=== PATIENT | male | born 1935 | race Caucasian/White ===

== ENCOUNTER 2020-07-08 14:28 | Inpatient (IN) | payer OTHER ==
--- NOTE | 2020-07-08 15:07 | RAD REPORT ---
EXAM DESCRIPTION: Luzmaria Single View07/08/2020 3:02 pm CLINICAL HISTORY: cough COMPARISON: 2013 FINDINGS: Calcified granuloma right lung. The lungs appear clear of acute infiltrate. The heart is normal size IMPRESSION: No acute abnormalities displayed
[2020-07-08] MEDS ORDERED: NA CHLORIDE 0.9% 250 ML ONE (15:17)
[2020-07-08 15:28] LABS: Absolute Lymphocytes (CBC) 2.1 K/uL (0.7-4.9); Basophils % 0.6 % (0-1.3); Hematocrit 45.2 % (39.6-49.0); Lymphocytes % 35.3 % (15.3-44.8); RBC Red Blood Cell Count 5.02 M/uL (4.33-5.43)
[2020-07-08 15:46] LABS: C-Reactive Protein 7.13 mg/L (<3.00); Potassium 4.1 mmol/L (3.5-5.1); Troponin (Emerg Dept Use Only) 0.02 ng/mL (0.0-0.045)
--- NOTE | 2020-07-08 15:56 | ER ---
Nurse's Notes [facility] Name: Xavier Comer Age: 84 yrs Sex: Male : 1935 Arrival Date: 07/08/2020 Time: 14:30 Bed 4 Private MD: Diagnosis: Dyspnea, unspecified;Chronic kidney disease (CKD) Presentation: 07/08 14:41 Chief complaint: Patient states: Cough for 3 weeks. SOB increasing over the past 3 ll1 days. SOB with any exertion. No fever at home. Coronavirus screen: Client denies travel out of the [place] in the last 14 days. cough unrelated to allergies, difficulty breathing, fatigue, Client presents with at least one sign or symptom that may indicate coronavirus-19. Standard/surgical mask placed on the client. Ebola Screen: Patient denies travel to an Ebola-affected area in the 21 days before illness onset. Initial Sepsis Screen: Does the patient meet any 2 criteria? HR > 90 bpm. Risk Assessment: Do you want to hurt yourself or someone else? Patient reports no desire to harm self or others. Onset of symptoms was June 16, 2020. 14:41 Method Of Arrival: Wheelchair ll1 14:41 Acuity: LINDSEY 3 ll1 15:05 Initial Sepsis Screen: Does the patient have a suspected source of infection? No. sv Patient's initial sepsis screen is negative. Historical: - Allergies: 14:43 No Known Allergies; ll1 - PMHx: 14:43 Hypertension; walking pneumonia; pleurisy; ll1 - PSHx: 14:43 Hernia repair; Cholecystectomy; Prostate; Appendectomy; ll1 - Immunization history:: Flu vaccine is up to date. - Social history:: Smoking status: Patient denies any tobacco usage or history of. Patient/guardian denies using alcohol, street drugs. - Family history:: not pertinent. - Hospitalizations: : No recent hospitalization is reported. Screenin:40 Abuse screen: Denies threats or abuse. Denies injuries from another. Nutritional sv screening: No deficits noted. Tuberculosis screening: No symptoms or risk factors identified. Fall Risk None identified. Assessment: 15:05 General: Appears in no apparent distress. comfortable, slender, well groomed, well sv developed, well nourished, Behavior is calm, cooperative, appropriate for age. Pain: Denies pain. Neuro: Level of Consciousness is awake, alert, obeys commands, Oriented to person, place, time, situation, Moves all extremities. Full function Gait is steady, Speech is normal. Cardiovascular: Patient's skin is warm and dry. Rhythm is sinus rhythm with unifocal PVCs. Respiratory: Reports shortness of breath on exertion cough that is non-productive, persistent since 3 weeks Airway is patent Respiratory effort is even, unlabored, Respiratory pattern is regular, symmetrical. Derm: Skin is intact, Skin is pink, warm \T\ dry. Musculoskeletal: Range of motion: intact in all extremities. 15:54 Reassessment: Patient appears in no apparent distress at this time. No changes from sv previously documented assessment. Patient and/or family updated on plan of care and expected duration. Pain level reassessed. Patient is alert, oriented x 3, equal unlabored respirations, skin warm/dry/pink. 16:28 Reassessment: Awaiting admission orders. sv 16:35 Reassessment: Dr Knott at the bedside. sv 17:00 Reassessment: Patient appears in no apparent distress at this time. No changes from sv previously documented assessment. Patient and/or family updated on plan of care and expected duration. Pain level reassessed. Patient is alert, oriented x 3, equal unlabored respirations, skin warm/dry/pink. 17:08 Reassessment: Ultrasound at the bedside. sv 17:25 Reassessment: Attempted to call report, nurse to call back. sv Vital Signs: 14:41 BP 176 / 108; Pulse 112; Resp 20; Temp 97.6; Pulse Ox 93% on R/A; Pain 4/10; ll1 15:42 Pulse Ox 87% on R/A; sv 15:50 BP 177 / 87; Pulse 92; Resp 16; Pulse Ox 95% on 3.5 lpm NC; sv 16:27 Weight 83.91 kg (R); sv 17:02 BP 168 / 91; Pulse 90 MON; Resp 12; Pulse Ox 98% on 3.5 lpm NC; sv 17:02 Sinus Rhythm sv 15:42 Pt placed on O2 \T\ 3.5 L per NC. O2 sat up to 95%. Informed Dr Knott. sv ED Course: 14:30 Patient arrived in ED. ds1 14:39 Lauro Knott MD is Attending Physician. rn 14:40 Naila Moulton, RN is Primary Nurse. sv 14:40 Awaiting ED provider evaluation. sv 14:40 Arm band placed on. sv 14:40 Patient has correct armband on for positive identification. Bed in low position. Call sv light in reach. Pulse ox on. NIBP on. Door closed. Head of bed elevated. 14:42 Awaiting for x-ray. sv 14:43 Triage completed. ll1 14:57 X-ray(s) taken. sv 15:02 XRAY Chest (1 view) In Process Unspecified. EDMS 15:05 First set of blood cultures drawn by me, EKG done, by ED staff, reviewed by Lauro valdivia MD. 15:12 Second set of blood cultures drawn by me. Inserted saline lock: 20 gauge in left sv antecubital area, using aseptic technique. Blood collected. Flushed left antecubital with 5 ml normal saline. 15:55 Tony Knott MD is Hospitalizing Provider. rn 16:51 Awaiting bed assignment. sv 17:33 Extrem Venous W Compression Glen US In Process Unspecified. EDMS 18:08 No provider procedures requiring assistance completed. Patient admitted, IV remains in hb place. Administered Medications: 15:14 Drug: NS 0.9% 250 ml Route: IV; Rate: bolus; Site: left antecubital; hb 15:35 Follow up: Response: No adverse reaction; IV Status: Completed infusion; IV Intake: sv 250ml 17:54 Drug: Lovenox 1 mg/kg Route: Sub-Q; Site: right lower abdomen; ss 18:08 Follow up: Response: No adverse reaction sv Intake: 15:35 IV: 250ml; Total: 250ml. sv Outcome: 15:55 Decision to Hospitalize by Provider. rn 18:08 Admitted to Tele room 207, Report called to Na JACOBS hb 18:08 Condition: stable 18:08 Instructed on the need for admit, Demonstrated understanding of instructions. 18:35 Patient left the ED. hb Signatures: Dispatcher [employer] EDMS Naila Moulton, RN ARLENE Sharri Lacey ds1 Lauro Knott MD MD rn Smirch, Shelby, RN RN Daxa Falcon RN RN hb Lewis, Lynsay RN RN ll1
--- NOTE | 2020-07-08 15:56 | EDPHYS ---
Physician Documentation [facility] Name: Xavier Comer Age: 84 yrs Sex: Male : 1935 Arrival Date: 07/08/2020 Time: 14:30 Bed 4 Private MD: ED Physician Lauro Knott HPI: 07/08 14:53 This 84 yrs old Male presents to ER via Wheelchair with complaints of rn Shortness Of Breath. 14:53 The patient has shortness of breath at rest, with light activity. Onset: The rn symptoms/episode began/occurred 3 week(s) ago. Duration: The symptoms are intermittent. The patient's shortness of breath is aggravated by exertion, light activity, is alleviated by nothing. Severity of symptoms: At their worst the symptoms were moderate in the emergency department the symptoms have improved. The patient has experienced a previous episode. Reports symptoms similar to when had "walking pneumonia" in past, + cough/sob, worse with exertion, began 3 weeks ago, worse over last few days. No known sick contacts. . Historical: - Allergies: 14:43 No Known Allergies; ll1 - PMHx: 14:43 Hypertension; walking pneumonia; pleurisy; ll1 - PSHx: 14:43 Hernia repair; Cholecystectomy; Prostate; Appendectomy; ll1 - Immunization history:: Flu vaccine is up to date. - Social history:: Smoking status: Patient denies any tobacco usage or history of. Patient/guardian denies using alcohol, street drugs. - Family history:: not pertinent. - Hospitalizations: : No recent hospitalization is reported. ROS: 14:53 Constitutional: Negative for fever, chills, and weight loss, Eyes: Negative for injury, rn pain, redness, and discharge, ENT: Negative for injury, pain, and discharge, Cardiovascular: Negative for palpitations, and edema, Respiratory: Negative for wheezing, and pleuritic chest pain, Abdomen/GI: Negative for abdominal pain, nausea, vomiting, diarrhea, and constipation, MS/Extremity: Negative for injury and deformity, Skin: Negative for injury, rash, and discoloration, Neuro: Negative for headache, weakness, numbness, tingling, and seizure. Exam: 14:53 Constitutional: This is a well developed, well nourished patient who is awake, alert, rn and in no acute distress. Head/Face: Normocephalic, atraumatic. ENT: No stridor Cardiovascular: Tachycardic, regular Respiratory: + mild tachypnea, no wheezing Abdomen/GI: soft, non-tender MS/ Extremity: Pulses equal, no cyanosis. Neurovascular intact. Full, normal range of motion. Equal circumference. Neuro: Awake and alert, GCS 15, oriented to person, place, time, and situation. Cranial nerves II-XII grossly intact. Motor strength 5/5 in all extremities. Sensory grossly intact. 15:25 ECG was reviewed by the Attending Physician. rn Vital Signs: 14:41 BP 176 / 108; Pulse 112; Resp 20; Temp 97.6; Pulse Ox 93% on R/A; Pain 4/10; ll1 15:42 Pulse Ox 87% on R/A; sv 15:50 BP 177 / 87; Pulse 92; Resp 16; Pulse Ox 95% on 3.5 lpm NC; sv 16:27 Weight 83.91 kg (R); sv 17:02 BP 168 / 91; Pulse 90 MON; Resp 12; Pulse Ox 98% on 3.5 lpm NC; sv 17:02 Sinus Rhythm sv 15:42 Pt placed on O2 \\T\\ 3.5 L per NC. O2 sat up to 95%. Informed Dr Knott. sv MDM: 14:39 Patient medically screened. rn 15:52 Differential diagnosis: Bronchitis pneumonia, Pulmonary Embolism. Data reviewed: vital rn signs, nurses notes, lab test result(s), radiologic studies, plain films, and as a result, I will admit patient. Counseling: I had a detailed discussion with the patient and/or guardian regarding: the historical points, exam findings, and any diagnostic results supporting the discharge/admit diagnosis, lab results, radiology results, the need for further work-up and treatment in the hospital. Response to treatment: There is no appreciated change of the patient's symptoms at this time, and as a result, I will admit patient. Admission orders: after a detailed discussion of the patient's condition and case, the admit orders are written by me. ED course: Elevated d-dimer, hypoxic, tachycardic, + hx of PE, unable to perform CT PE here 2/2 elevated kidney function, admitted to [facility] Knott for further care and V/Q scan. . 07/08 14:53 Order name: Blood Culture Adult (2) rn 07/08 14:53 Order name: BMP; Complete Time: 15:48 rn 07/08 14:53 Order name: C-Reactive Protein; Complete Time: 15:48 rn 07/08 14:53 Order name: CBC with Diff; Complete Time: 15:48 rn 07/08 14:53 Order name: D-Dimer; Complete Time: 15:48 rn 07/08 14:40 Order name: XRAY Chest (1 view); Complete Time: 15:15 rn 07/08 14:53 Order name: Ferritin; Complete Time: 15:48 rn 07/08 14:53 Order name: Flu; Complete Time: 18:19 rn 07/08 14:53 Order name: Lactate; Complete Time: 15:48 rn 07/08 14:53 Order name: Procalcitonin; Complete Time: 16:06 rn 07/08 14:53 Order name: Troponin (emerg Dept Use Only); Complete Time: 15:48 rn 07/08 14:53 Order name: BNP; Complete Time: 15:48 rn 07/08 16:18 Order name: SARS-COV-2 RT PCR; Complete Time: 18:19 EDMS 07/08 14:53 Order name: EKG; Complete Time: 14:54 rn 07/08 14:53 Order name: Cardiac monitoring; Complete Time: 15:22 rn 07/08 14:53 Order name: Droplet/Contact Precautions; Complete Time: 15:22 rn 07/08 14:53 Order name: EKG - Nurse/Tech; Complete Time: 15:22 rn 07/08 14:53 Order name: IV Start; Complete Time: 15:22 rn 07/08 14:53 Order name: Labs collected and sent; Complete Time: 15:22 rn 07/08 14:53 Order name: O2 Per Protocol; Complete Time: 15:22 rn 07/08 14:53 Order name: O2 Sat Monitoring; Complete Time: 15: rn 07/08 15:56 Order name: Extrem Venous W Compression Glen US; Complete Time: 18:19 rn EC:25 Rate is 102 beats/min. Rhythm is regular. QRS [place] is Normal. LA interval is normal. QT rn interval is normal. No Q waves. T waves are Normal. No ST changes noted. Clinical impression: Sinus tachycardia. Interpreted by me. Reviewed by me. Administered Medications: 15:14 Drug: NS 0.9% 250 ml Route: IV; Rate: bolus; Site: left antecubital; hb 15:35 Follow up: Response: No adverse reaction; IV Status: Completed infusion; IV Intake: sv 250ml 17:54 Drug: Lovenox 1 mg/kg Route: Sub-Q; Site: right lower abdomen; ss 18:08 Follow up: Response: No adverse reaction sv Disposition: 07/08/20 15:55 Hospitalization ordered by Tony Knott for Observation. Preliminary diagnosis are Dyspnea, unspecified, Chronic kidney disease (CKD). - Bed requested for Telemetry/MedSurg (observation). - Status is Observation. hb - Condition is Stable. - Problem is new. - Symptoms have improved. Signatures: Dispatcher [employer] EDNaila Cruz, RN ARLENE Lauro Knott MD MD rn Smirch, Shelby, RN RN ss Baxter, Heather, RN RN hb Lewis, Lynsay RN RN ll1 Corrections: (The following items were deleted from the chart) 16:18 14:54 CORONAVIRUS+MR.LAB.BRZ ordered. EDVA EDVA 17:29 15:55 Hospitalization Ordered by Tony Knott MD for Observation. Preliminary sv diagnosis is Dyspnea, unspecified; Chronic kidney disease (CKD). Bed requested for Telemetry/MedSurg (observation). Status is Observation. Condition is Stable. Problem is new. Symptoms have improved. rn 18:35 17:29 07/08/2020 15:55 Hospitalization Ordered by Tony Knott MD for Observation. hb Preliminary diagnosis is Dyspnea, unspecified; Chronic kidney disease (CKD). Bed requested for Telemetry/MedSurg (observation). Status is Observation. Condition is Stable. Problem is new. Symptoms have improved. sv
--- NOTE | 2020-07-08 17:15 | P.HP ---
Certification for Inpatient Patient admitted to: Inpatient With expected LOS: >2 Midnights Practitioner: I am a practitioner with admitting privileges, knowledge of patient current condition, hospital course, and medical plan of care. Services: Services provided to patient in accordance with Admission requirements found in Title 42 Section 412.3 of the Code of Federal Regulations Patient History Date of Service: 07/08/20 Primary Care Provider: Dr. Aaron Reason for admission: Dyspnea on exertion, CHF exacerbation, possible PE History of Present Illness: 84-year-old male, PMH: HTN, prior PE and DVT several years ago (has been off anticoagulation for at least 2 years), GERD, CKD who presents due to 1 month of slowly progressively worsening dyspnea on exertion. This significantly worsened over the past week to where he would become significantly dyspneic just walking several feet and having to rest. He feels like there is a band around his chest at times and he takes a deep breath he will begin to have coughing fits that are nonproductive. He does endorse maybe some slight worsening of his lower extremity edema. He otherwise reports being in his usual state of health. Denies fever, chest pain, abdominal pain, chills, rashes, lesions, changes in urinary/bowel habits. In the ED, he was found have a D-dimer of 7207, creatinine of 1.94, CRP: 7.13, BNP: 9 1, pro calcitonin negative. Covid negative. CXR: No acute abnormalities, no DVT on bilateral venous ultrasound Given his kidney function, he did not undergo CT with IV contrast. Allergies No Known Drug Allergies Allergy (Verified 03/21/15 20:49) Unknown Home Medications: Omeprazole 20 mg PO DAILY 12/10/12 hydroCHLOROthiazide [Hydrodiuril*] 25 mg PO DAILY 12/10/12 Warfarin Sodium [Coumadin] 5 mg PO DAILY #0 tablet 12/15/12 Losartan/Hydrochlorothiazide [Losartan-Hctz 50-12.5 mg Tab] 1 tab PO DAILY 03/21/15 Potassium Chloride [Micro-K] 8 meq PO BID 03/21/15 Pravastatin [Pravachol*] 40 mg PO DAILY 03/21/15 Ciprofloxacin HCl [Cipro] 500 mg PO BID #14 tablet 03/24/15 metroNIDAZOLE [Flagyl] 250 mg PO Q6H #28 tablet 03/24/15 - Past Medical/Surgical History Diabetic: No -: diverticulosis -: afib -: kidney problems -: HTN -: carmita -: abd hernia repair -: prostate removed 15yrs ago - Family History Mother -: Heart disease, Cancer Notes: cervical Brother -: Cancer Notes: from poss prostate cx Sister -: Cancer Notes: breast cx Father -: Heart disease - Social History Alcohol use: No CD- Drugs: No Caffeine use: No Review of Systems 10-point ROS is otherwise unremarkable Physical Examination - Physical Exam General: Alert, In no apparent distress HEENT: Mucous membr. moist/pink, EOMI, Sclerae nonicteric Neck: Supple, No LAD Respiratory: Clear to auscultation bilaterally, Normal air movement Cardiovascular: Edema (1+ b/l edema to knees) Gastrointestinal: Soft and benign, Non-distended, No tenderness Musculoskeletal: No erythema, No tenderness Integumentary: No rashes Neurological: Normal speech, Normal affect - Studies Laboratory Data (last 24 hrs) 07/08/20 15:12: WBC 6.0, Hgb 15.1, Hct 45.2, Plt Count 194 07/08/20 15:12: Sodium 139, Potassium 4.1, BUN 18, Creatinine 1.94 H, Glucose 97 Microbiology Data (last 24 hrs): 07/08/20 15:13 Nasopharnyx Influenza Type A Antigen Screen - Final 07/08/20 15:13 Nasopharnyx Influenza Type B Antigen Screen - Final Assessment and Plan - Advance Directives Does patient have a Living Will: Yes Does patient have a Durable POA for Healthcare: No Physician Review Additional Text: Dyspnea on exertion Possible CHF exacerbation h/o PE & DVT, off anticoagulation for 2-3 years -higher risk for PE, unfortunately did not undergo CT -Will admit and order V/Q scan -possible CHF exacerbation in setting of pulmonary embolism -IV Lasix, monitor intake and output -patient reports no prior history of heart failure, will obtain TTE -lovenox 1mg/kg BID HTN -confirm and restart home meds GERD -confirm and restart home meds Dispo: VQ scan and TTE ordered, anticipate discharge in 48-72 hrs Time Spent Managing Pts Care (In Minutes): 55
[2020-07-08] MEDS ORDERED: ENOXAPARIN 80 MG/0.8 ML SQ ONE (17:48)
--- NOTE | 2020-07-08 17:51 | RAD REPORT ---
EXAM DESCRIPTION: USExtrem Venous W Compress Bil07/08/2020 5:33 pm CLINICAL HISTORY: Leg pain COMPARISON: 2019 FINDINGS: The common femoral, superficial femoral, popliteal and posterior tibial veins bilaterally are compressible and demonstrate augmentation. Doppler demonstrates good flow. IMPRESSION: No evidence of deep venous thrombosis involving either lower extremity.
[2020-07-08] MEDS: FUROSEMIDE 20 MG/ 2ML VIAL IV SCH (20:04)
[2020-07-08 20:34] VITALS: BMI 24.0
[2020-07-09 06:09] LABS: Absolute Lymphocytes (CBC) 2.2 K/uL (0.7-4.9); Basophils % 0.6 % (0-1.3); Hematocrit 42.9 % (39.6-49.0); Lymphocytes % 40.4 % (15.3-44.8); MPV 7.8 fL (7.6-11.3); RBC Red Blood Cell Count 4.81 M/uL (4.33-5.43)
[2020-07-09 06:11] LABS: Protime INR 1.05
[2020-07-09 06:27] LABS: Albumin 3.4 g/dL (3.4-5.0); Magnesium 2.2 mg/dL (1.8-2.4); Potassium 5.2 mmol/L (3.5-5.1); Protein, Total 7.1 g/dL (6.4-8.2)
[2020-07-09] MEDS ORDERED: PNEUMOCOCCAL VACCINE 0.5 ML IMVAC ONE (08:00)
[2020-07-09] MEDS: FUROSEMIDE 20 MG/ 2ML VIAL IV SCH (08:42)
--- NOTE | 2020-07-09 08:43 | RAD REPORT ---
EXAM DESCRIPTION: NM - Vent Perfusion VQ Scan - 07/09/2020 7:59 am CLINICAL HISTORY: concern for PE, DYLAN Shortness of breath COMPARISON: NM VENT PERFUSION VQ SCAN dated 12/10/2012; Extrem Venous W Compress Glen dated 07/08/2020 TECHNIQUE: 10.2mCi Xe-133 gas inhaled and 7.6mCi Tc-MAA IV. Planar ventilation scan was performed in posterior projection after Xe-133 gas inhalation (wash-in, e quilibrium, and wash-out phases) followed by perfusion scan with Tc-MAA IV in multiple projections. Examination is correlated with recent chest radiograph. FINDINGS: Normal ventilation with appropriate wash-out and moderate significant air-trapping. Multiple bilateral segmental mismatched defects are present. IMPRESSION: High probability of pulmonary embolism. Moderate COPD.
[2020-07-09] MEDS ORDERED: ENOXAPARIN 80 MG/0.8 ML SQ SCH (09:00)
--- NOTE | 2020-07-09 09:52 | P.PN ---
Subjective Date of Service: 07/09/20 Primary Care Provider: Dr. Aaron Chief Complaint: Dyspnea on exertion, CHF exacerbation, possible PE Subjective: No new changes (no acute events overnight. no significant changes overnight, maybe feels slightly more comfortable breathing, but has not gotten out of bed. no chest pain, afebrile) Physical Examination - Vital Signs Temperature: 97.9 F Blood Pressure: 160/80 Pulse: 88 Respirations: 16 Pulse Ox (%): 93 - Physical Exam General: Alert, In no apparent distress HEENT: Mucous membr. moist/pink, Sclerae nonicteric Neck: Supple, No LAD Respiratory: Clear to auscultation bilaterally, Diminished (slightly at bases) Cardiovascular: Regular rate/rhythm, Normal S1 S2, Edema (Trace to 1+ to bilateral knees) Gastrointestinal: Soft and benign, Non-distended, No tenderness Musculoskeletal: No erythema, No tenderness Integumentary: No rashes Neurological: Normal speech, Normal affect - Studies Laboratory Data (last 24 hrs) 07/08/20 15:12: WBC 6.0, Hgb 15.1, Hct 45.2, Plt Count 194 07/08/20 15:12: Sodium 139, Potassium 4.1, BUN 18, Creatinine 1.94 H, Glucose 97 Microbiology Data (last 24 hrs): 07/08/20 15:13 Nasopharnyx Influenza Type A Antigen Screen - Final 07/08/20 15:13 Nasopharnyx Influenza Type B Antigen Screen - Final Assessment & Plan Physician Review Additional Text: Dyspnea on exertion Possible CHF exacerbation h/o PE & DVT, off anticoagulation for 2-3 years -higher risk for PE, unfortunately did not undergo CT due to kidney function -pt seen just before being taken to get V/Q scan this morning -possible CHF exacerbation in setting of pulmonary embolism -IV Lasix, monitor intake and output -patient reports no prior history of heart failure, will obtain TTE - eval for R heart strain in possible setting of PE as well -lovenox 1mg/kg BID for now HTN -restart Cartia GERD -restart PPI Dispo: VQ scan and TTE ordered, anticipate discharge in 24-48 hrs Time Spent Managing Pts Care (In Minutes): 35
--- NOTE | 2020-07-09 11:48 | CON ---
Date of Consultation: 07/09/2020 Additional Consulting Physician: Dr. Tony Knott. Reason For Consultation: Elevated BUN and creatinine. History Of Present Illness: This is a pleasant 84-year-old gentleman with significant past medical history of hypertension, hyperlipidemia, DVT with PE before off anticoagulation, came to the hospital complaining of shortness of breath getting worse over the last 10 days to 2 weeks and gradually to the losing ability even to walk a few steps and the hospital workup show hypoxemia with negative chest x-ray. V/Q scan was done showing positive for PE. The patient was started on anticoagulation. Primary workup showed elevation in BUN and creatinine. The patient denied taking any nonsteroidal, no IV contrast, no recent change in his medication. The patient used to follow up with Dr. Joseph, seen back in a few years. Reviewing the record for the patient, the patient's creatinine back in 2014 was at 1.9 with GFR of 34. Currently creatinine 2, GFR of 31. Past Medical History: 1. 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 2. Hypertension. 3. Hyperlipidemia. 4. PE with DVT. Allergies: NO KNOWN DRUG ALLERGY. Social History: The patient denies smoking, denies drinking, denies drugs abuse. Family History: Positive for coronary artery disease and cancer. Past Surgical History: Includes; 1. Cholecystectomy. 2. Hernia repair. 3. Prostate removal back in 2004. Home Medications: Include; 1. Omeprazole. 2. Hydrochlorothiazide. 3. Coumadin. 4. Losartan and hydrochlorothiazide. 5. Pravastatin. 6. Ciprofloxacin. 7. Metronidazole. Review of Systems: Head and Neck: No red eye. No ear pain. GI: No nausea. No vomiting. : No polyuria. No dysuria. No hematuria. Night Baker: Not applicable. Respiratory: Has shortness of breath. Cardiovascular: No leg swelling. Has decreased exertional tolerance. No chest pain. Endocrine: No polydipsia. Skin: No rash. Neuro: No neuropathy. No weakness. Musculoskeletal: Leg pain. Physical Examination: General: When I saw the patient, the patient lying in bed. Vital Signs: Blood pressure 160/80, pulse of 88, afebrile. Chest: Clear to auscultation. Heart: S1, S2. Regular. Abdomen: Soft, nontender. Extremities: Had compression socks bilaterally. No edema. Neurological: Alert and oriented x3. Nonfocal. Skin: No rash. No ulcers. Laboratory Data: Sodium 144, potassium 5.2, bicarb 25, BUN 21, creatinine 2, calcium 9.3, phosphorus not done, magnesium 2.2. The patient had serum protein electrophoresis, has been done back in 2010 with no M-spike. PTH of 75 before with low vitamin D. Urinalysis; specific gravity 1.020. No recent UA. Current Medications: The patient on its include; 1. Lovenox. 2. Diltiazem. 3. Lasix 20 b.i.d. 4. Pantoprazole. Assessment And Plan: 1. Acute kidney injury on chronic kidney disease mostly secondary to prerenal, secondary to over diuresed hydrochlorothiazide and Lasix right now, superimposed with losartan and complicated with marginal hyperkalemia. I am going to discontinue Lasix. We will start the patient on gentle hydration and we will agree on holding ARB and hydrochlorothiazide, hold Lasix. We will monitor the patient. 2. Chronic kidney disease, stage 3B with acute kidney injury. Given the recurrent deep vein thrombosis without any provoked entity, I am going to send for protein creatinine and we will send for protein C and S and serologies just to make sure there is no other reason. 3. Hypertension with presence of acute kidney injury. Hold diuresis, hold losartan. Agree with calcium channel june. We will add carvedilol. 4. Pulmonary embolism, recurrent, non-provoked. We will follow up with primary. We will send for hypercoagulopathy workup. Thank you, Dr. Knott for allowing us to participate in the care of your patient. Time spent coordinating the care, discuss him with all of our team members including othere industrial rehabilitation consultant and hospitalist and [id number] with the patient and please go out of 65 min JAMES/ELZA Voice ID: [id number] Report ID: [id number] JOEL
[2020-07-09] MEDS: NA CHLORIDE 0.9% 500 ML IV SCH ×2 (12:22→21:16)
[2020-07-09 15:01] LABS: Urine Appearance CLEAR; Urine Bilirubin NEGATIVE (NEG); Urine Blood NEGATIVE (NEG); Urine Color YELLOW; Urine Glucose NEGATIVE (NEG); Urine Protein NEGATIVE (NEG); Urine Urobilinogen 0.2 mg/dL (0.2-1.0)
[2020-07-09 15:04] LABS: Urine Microscopic Reflex NO UMIC
[2020-07-09 15:05] LABS: Urine Protein/Creatinine Ratio 0.23 ratio (<0.15)
[2020-07-09] MEDS: APIXABAN 5 MG TABLET PO SCH (20:31)
[2020-07-09] MEDS: carvediloL 6.25 MG TAB PO SCH (20:32)
[2020-07-10] MEDS: NA CHLORIDE 0.9% 500 ML IV SCH ×2 (06:08→08:00)
[2020-07-10 06:16] LABS: Albumin 3.1 g/dL (3.4-5.0); Bilirubin Total 0.7 mg/dL (0.2-1.0); Magnesium 2.3 mg/dL (1.8-2.4); Phosphorus 3.3 mg/dL (2.5-4.9); Potassium 4.7 mmol/L (3.5-5.1); Protein, Total 6.5 g/dL (6.4-8.2)
--- NOTE | 2020-07-10 06:33 | ECHO ---
HEIGHT: 6 ft 1.5 in WEIGHT: 185 lb 0 oz DATE OF STUDY: 07/09/[address]: Tony Knott MD 2-DIMENSIONAL: YES M.MODE: YES DOPPLER: YES COLOR FLOW: YES TDS: YES PORTABLE: DEFINITY: BUBBLE STUDY: DIAGNOSIS: CONGESTIVE HEART FAILURE CARDIAC HISTORY: CATHERIZATION: YES SURGERY: NO PROSTHETIC VALVE: NO PACEMAKER: NO MEASUREMENTS (cm) DIASTOLIC (NORMALS) SYSTOLIC (NORMALS) IVSd 1.2 (0.6-1.2) LA Diam 2.9 (1.9-4.0) LVEF 67% LVIDd 3.4 (3.5-5.7) LVIDs 2.2 (2.0-3.5) %FS 36% LVPWd 1.1 (0.6-1.2) Ao Diam 2.3 (2.0-3.7) 2 DIMENSIONAL ASSESSMENT: RIGHT ATRIUM: LEFT ATRIUM: RIGHT VENTRICLE: LEFT VENTRICLE: TRICUSPID VALVE: MITRAL VALVE: PULMONIC VALVE: AORTIC VALVE: PERICARDIAL EFFUSION: AORTIC ROOT: LEFT VENTRICULAR WALL MOTION: DOPPLER/COLOR FLOW: COMMENTS: VERY POOR STUDY, UNABLE TO ACCURATELY EVALUATE LEFT VENTRICULAR FUNCTION OR STRUCTURED ABNORMALITIES. TECHNOLOGIST: CHIQUIS GOLDMAN
[2020-07-10] MEDS: APIXABAN 5 MG TABLET PO SCH (07:56)
[2020-07-10] MEDS: carvediloL 6.25 MG TAB PO SCH (07:58)
[2020-07-10 08:02] VITALS: BP 143/69
[2020-07-10] MEDS ORDERED: HOME MED 1 EA UNK (Omeprazole [Prilosec] 40 MG) PO SCH (09:00)
[2020-07-10] MEDS ORDERED: PANTOPRAZOLE 40MG TABLET PO SCH (09:00)
[2020-07-10] MEDS ORDERED: DILTIAZEM HCL 120 MG SR CAP PO SCH (09:00)
[2020-07-10 10:28] VITALS: TEMP 97
--- NOTE | 2020-07-10 12:19 | P.PN ---
Subjective Date of Service: 07/10/20 Primary Care Provider: Dr. Aaron Chief Complaint: Dyspnea on exertion, CHF exacerbation, possible PE Subjective: Improving Subjective Pt with CKD III, HTN , presented with SOB found to have PE today no new complaints stable VS Cr stable can be discharged from nephrology point of view F/U with nephrology clinic in 2-3 Wks Physical exam general: AAOX3, NAD , Neck; Supple, No elevated JVD hear: RRR, normal S1,2 no murmur or rub Chest: CTAB, no rlaes or wheezes Abdomen: Soft , Nt Extremities No edema or ulcer CKD IIIb Due HTN nephrosclerosis Cr stable renal dose meds avoid NSAID and contrast HTN controlled PE on Elqiuis total time spent 30 min Physical Examination - Vital Signs Temperature: 97 F Blood Pressure: 143/69 Pulse: 81 Respirations: 18 Pulse Ox (%): 93 Assessment And Plan Physician Review Additional Text: Dyspnea on exertion Possible CHF exacerbation h/o PE & DVT, off anticoagulation for 2-3 years -higher risk for PE, unfortunately did not undergo CT due to kidney function -pt seen just before being taken to get V/Q scan this morning -possible CHF exacerbation in setting of pulmonary embolism -IV Lasix, monitor intake and output -patient reports no prior history of heart failure, will obtain TTE - eval for R heart strain in possible setting of PE as well -lovenox 1mg/kg BID for now HTN -restart Cartia GERD -restart PPI Dispo: VQ scan and TTE ordered, anticipate discharge in 24-48 hrs
[2020-07-10 12:53] VITALS: O2SAT 93
--- NOTE | 2020-07-10 13:03 | P.DS ---
Admission Date: 07/08/20 Discharge Date: 07/10/20 Primary Care Provider: Dr. Aaron Disposition: ROUTINE DISCHARGE Discharge Condition: GOOD Reason for Admission: Dyspnea on exertion, CHF exacerbation, possible PE Consultations: Nephrology- Dr. Aguilera Procedures: Problem list Dyspnea on exertion Pulmonary Emblism, with h/o PE & DVT, off anticoagulation for 2-3 years Possible CHF exacerbation HTN GERD Brief History of Present Illness: 84-year-old male, PMH: HTN, prior PE and DVT several years ago (has been off anticoagulation for at least 2 years), GERD, CKD who presents due to 1 month of slowly progressively worsening dyspnea on exertion. This significantly worsened over the past week to where he would become significantly dyspneic just walking several feet and having to rest. He feels like there is a band around his chest at times and he takes a deep breath he will begin to have coughing fits that are nonproductive. He does endorse maybe some slight worsening of his lower extremity edema. He otherwise reports being in his usual state of health. Denies fever, chest pain, abdominal pain, chills, rashes, lesions, changes in urinary/bowel habits. In the ED, he was found have a D-dimer of 7207, creatinine of 1.94, CRP: 7.13, BNP: 9 1, pro calcitonin negative. Covid negative. CXR: No acute abnormalities, no DVT on bilateral venous ultrasound Given his kidney function, he did not undergo CT with IV contrast. Hospital Course: The patient was admitted for further evaluation. He underwent V/Q scan the morning after admission which was positive for multiple scattered pulmonary emboli. He was transitioned from therapeutic Lovenox to Eliquis given his kidney function. Nephrology was consulted given his kidney function, history CKD, and no recent follow up. He did receive 20 mg of IV Lasix on 07/09, but this was then discontinued by Nephrology. Patient's creatinine remained stable, which seemed to be around his baseline 1.9-2.0. An echocardiogram was performed for further evaluation of possible CHF or right heart strain due to PE. Unfortunately it was a technically poor study and unable to be accurately visualized. On day of discharge, patient was breathing comfortably on room air, able to ambulate without requiring oxygen. He felt significantly better and was discharged home. Carvedilol was added to his regimen, and he was started on Eliquis. He is advised to follow up with his PCP within 1 week of discharge, and to re- establish with nephrology, and follow up with Cardiology. He would benefit from a repeat echocardiogram in the near future. Vital Signs/Physical Exam: Temp Pulse Resp BP Pulse Ox 97 F 81 18 143/69 H 93 07/10/20 12:19 07/10/20 12:19 07/10/20 12:19 07/10/20 12:19 07/10/20 12:19 General: Alert, In no apparent distress HEENT: Mucous membr. moist/pink, Sclerae nonicteric Neck: Supple Respiratory: Clear to auscultation bilaterally, Diminished Cardiovascular: No edema, Regular rate/rhythm, Normal S1 S2 Gastrointestinal: Soft and benign, Non-distended, No tenderness Musculoskeletal: No erythema, No tenderness Integumentary: No rashes Neurological: Normal speech, Normal affect Laboratory Data at Discharge: WBC 5.5 K/uL (4.3-10.9) 07/09/20 05:45 Hgb 14.6 g/dL (13.6-17.9) 07/09/20 05:45 Hct 42.9 % (39.6-49.0) 07/09/20 05:45 Plt Count 176 K/uL (152-406) 07/09/20 05:45 PT 12.4 SECONDS (9.5-12.5) 07/09/20 05:45 INR 1.05 07/09/20 05:45 Sodium 146 mmol/L (136-145) H 07/10/20 05:27 Potassium 4.7 mmol/L (3.5-5.1) 07/10/20 05:27 BUN 23 mg/dL (7-18) H 07/10/20 05:27 Creatinine 2.10 mg/dL (0.55-1.3) H 07/10/20 05:27 Glucose 103 mg/dL (74-106) 07/10/20 05:27 Phosphorus 3.3 mg/dL (2.5-4.9) 07/10/20 05:27 Magnesium 2.3 mg/dL (1.8-2.4) 07/10/20 05:27 Total Bilirubin 0.7 mg/dL (0.2-1.0) 07/10/20 05:27 AST 13 U/L (15-37) L 07/10/20 05:27 ALT 16 U/L (12-78) 07/10/20 05:27 Alkaline Phosphatase 72 U/L (45-117) 07/10/20 05:27 Troponin I 0.04 ng/mL (0.0-0.045) 07/08/20 22:35 Triglycerides 94 mg/dL (<150) 07/09/20 05:45 Cholesterol 164 mg/dL (<200) 07/09/20 05:45 HDL Cholesterol 34 mg/dL (40-60) L 07/09/20 05:45 Cholesterol/HDL Ratio 4.82 07/09/20 05:45 Home Medications: Cetirizine HCl [Allergy Relief] 10 mg PO DAILY 07/08/20 Diltiazem HCl [Cartia Xt] 240 mg PO DAILY 07/08/20 Omeprazole [Prilosec] 40 mg PO DAILY 07/08/20 Apixaban [Eliquis] 1 tab PO SEECOM 30 Days #72 tablet 07/10/20 carvediloL [Coreg*] 1 tab PO BID 30 Days #30 tab 07/10/20 New Medications: carvediloL [Coreg*] 1 tab PO BID 30 Days #30 tab Apixaban [Eliquis] 1 tab PO SEECOM 30 Days #72 tablet Patient Discharge Instructions: Follow up with PCP within 1-2 weeks. Follow up with Nephrology within 3-4 weeks. Diet: Regular Activity: Ad omar Followup: Hortencia Aguilera MD [ACTIVE - CAN ADMIT] - (Call to make an appointment. ) Time spent managing pt's care (in minutes): 35
[2020-07-14 13:13] LABS: Protein C Antigen 89 % (70-140)
[2020-07-14 21:44] LABS: Anti-Cardiolipin IgA Antibody <11 APL (<=11)
== END 2020-07-10 15:12 | disposition home or self-care (01) | DRG 176 ==
LOC: ER 14:28 → ERHOLD 17:57 → 2ND 18:10
PROVIDERS: ADMIT Hospitalist; ATTEND Hospitalist
DX: I26.99 Other pulmonary embolism without acute cor pulmonale (principal); N17.9 Acute kidney failure, unspecified; I12.9 Hypertensive chronic kidney disease with stage 1 through stage 4 chronic kidney disease, or unspecified chronic kidney disease; N18.3 Chronic kidney disease, stage 3 (moderate); E78.5 Hyperlipidemia, unspecified; E87.5 Hyperkalemia; K21.9 Gastro-esophageal reflux disease without esophagitis; Z86.718 Personal history of other venous thrombosis and embolism; Z90.49 Acquired absence of other specified parts of digestive tract; Z86.711 Personal history of pulmonary embolism; Z79.01 Long term (current) use of anticoagulants; Z79.899 Other long term (current) drug therapy; Z20.828 Contact with and (suspected) exposure to other viral communicable diseases
CPT/HCPCS: 36415; 71045; 78582; 80048; 80053; 80061; 80069; 81003; 82570; 82728; 83605; 83735; 83880; 83970; 84145; 84156; 84484; 85025; 85300; 85301; 85302; 85305; 85306; 85379; 85610; 86038; 86140; 86147; 86160; 86225; 87040; 87804; 93005; 93306; 93970; 94760; 96365; 96372; 99285; A9540; A9558; J1940; J7030; J7050; U0003

== ENCOUNTER 2021-02-07 18:31 | Observation (INO) | payer OTHER ==
[2021-02-07 19:28] LABS: Absolute Lymphocytes (CBC) 2.7 K/uL (0.7-4.9); Basophils % 0.7 % (0-1.3); Hematocrit 42.5 % (39.6-49.0); Lymphocytes % 42.5 % (15.3-44.8); MPV 8.1 fL (7.6-11.3)
[2021-02-07 19:35] LABS: Protime INR 1.18
[2021-02-07] MEDS ORDERED: MORPHINE 4 MG/ML SYR ONE (19:37)
[2021-02-07] MEDS ORDERED: ONDANSETRON 4 MG/2 ML VIAL ONE (19:37)
[2021-02-07 19:48] LABS: ALT/SGPT 22 U/L (12-78); AST/SGOT 12 U/L (15-37); Albumin 3.7 g/dL (3.4-5.0); Alkaline Phosphatase 70 U/L (45-117); BUN Blood Urea Nitrogen 20 mg/dL (7-18); Bicarbonate 22 mmol/L (21-32); Bilirubin Direct 0.1 mg/dL (0-0.2); Bilirubin Total 0.5 mg/dL (0.2-1.0); Glucose Level 108 mg/dL (74-106); Magnesium 2.2 mg/dL (1.8-2.4); NT PRO-BNP 125 pg/mL (<450); Potassium 4.2 mmol/L (3.5-5.1); Protein, Total 7.4 g/dL (6.4-8.2); Sodium Level 143 mmol/L (136-145); Troponin (Emerg Dept Use Only) < 0.02 ng/mL (0.0-0.045)
--- NOTE | 2021-02-07 19:52 | RAD REPORT ---
EXAM DESCRIPTION: [facility]ia Single View02/07/2021 7:12 pm CLINICAL HISTORY: Chest pain COMPARISON: 2019 FINDINGS: The lungs appear clear of acute infiltrate. The heart is mildly enlarged IMPRESSION: No acute abnormalities displayed
--- NOTE | 2021-02-07 20:06 | EDPHYS ---
Physician Documentation [facility] Name: Xavier Comer Age: 85 yrs Sex: Male : 1935 Arrival Date: 02/07/2021 Time: 18:35 Bed 24 Private MD: ED Physician Ham Ledbetter HPI: 02/07 19:21 This 85 yrs old Male presents to ER via Ambulatory with complaints of Chest pm1 Pain. 19:21 The patient or guardian reports chest pain that is located primarily in the mid-sternal pm1 area. Onset: at 17:00. The pain radiates to the left arm. Associated signs and symptoms: Pertinent negatives: abdominal pain, cough, diaphoresis, dizziness, headache, nausea, shortness of breath, vomiting. The chest pain is described as aching. Duration: The patient or guardian reports a single episode, that is still ongoing. Modifying factors: The symptoms are alleviated by nothing. the symptoms are aggravated by nothing. Severity of pain: in the emergency department the pain has improved is a 6 / 10 Peak at 7/10. The patient has not experienced similar symptoms in the past. Historical: - Allergies: 18:36 No Known Allergies; jd3 - PMHx: 18:36 Hypertension; pleurisy; walking pneumonia; jd3 - PSHx: 18:36 Hernia repair; Cholecystectomy; Prostate; Appendectomy; jd3 - Immunization history:: Adult Immunizations up to date. - Social history:: Smoking status: Patient denies any tobacco usage or history of. ROS: 19:21 Constitutional: Negative for fever, chills, and weight loss. pm1 19:21 Respiratory: Negative for shortness of breath, cough, wheezing, and pleuritic chest pain, Abdomen/GI: Negative for abdominal pain, nausea, vomiting, diarrhea, and constipation, Back: Negative for injury and pain, MS/Extremity: Negative for injury and deformity, Skin: Negative for injury, rash, and discoloration, Neuro: Negative for headache, weakness, numbness, tingling, and seizure. 19:21 Cardiovascular: Positive for chest pain, Negative for edema, palpitations. Exam: 19:21 Constitutional: This is a well developed, well nourished patient who is awake, alert, pm1 and in no acute distress. Head/Face: Normocephalic, atraumatic. 19:21 Chest/axilla: Normal chest wall appearance and motion. Nontender with no deformity. No lesions are appreciated. 19:21 Back: No spinal tenderness. No costovertebral tenderness. Full range of motion. Skin: Warm, dry with normal turgor. Normal color with no rashes, no lesions, and no evidence of cellulitis. MS/ Extremity: Pulses equal, no cyanosis. Neurovascular intact. Full, normal range of motion. 19:21 Cardiovascular: Rate: normal, Rhythm: regular, Pulses: no pulse deficits are appreciated, Heart sounds: normal, normal S1and S2, Edema: is not appreciated. 19:21 Respiratory: Exam negative for acute changes, respiratory distress, shortness of breath, Breath sounds: are clear throughout. 19:21 Abdomen/GI: Exam negative for acute changes, Inspection: abdomen appears normal, Palpation: abdomen is soft and non-tender, in all quadrants. 19:21 Neuro: Exam negative for acute changes, Orientation: is normal, Mentation: is normal, Motor: is normal, moves all fours. Vital Signs: 18:37 BP 170 / 79; Pulse 98; Resp 18 S; Temp 98.0(TE); Pulse Ox 94% on R/A; Weight 82.55 kg jd3 (R); Height 6 ft. 2 in. (187.96 cm) (R); Pain 7/10; 19:38 BP 173 / 86; Pulse 78; Resp 15; Pulse Ox 93% ; rr5 18:37 Body Mass Index 23.37 (82.55 kg, 187.96 cm) jd3 MDM: 18:52 Patient medically screened. pm1 18:58 Data reviewed: vital signs. pm1 19:27 ED course: No asprin given because the patient is currently taking eliquis for history pm1 of dvt/pe. . 19:52 Physician consultation: Juan Manuel MARTIN regarding admission, patient's condition, in pm1 the emergency department to see patient at 19:52. 20:05 Counseling: I had a detailed discussion with the patient and/or guardian regarding: the pm1 historical points, exam findings, and any diagnostic results supporting the discharge/admit diagnosis, lab results, radiology results, the need for further work-up and treatment in the hospital. 02/07 18:58 Order name: Basic Metabolic Panel pm1 02/07 18:58 Order name: CBC with Diff pm1 02/07 18:58 Order name: LFT's; Complete Time: 19:52 pm1 02/07 18:58 Order name: Magnesium; Complete Time: 19:52 pm1 02/07 18:58 Order name: NT PRO-BNP; Complete Time: 19:52 pm1 02/07 18:58 Order name: PT-INR; Complete Time: 19:52 pm1 02/07 18:58 Order name: Troponin (emerg Dept Use Only); Complete Time: 19:52 pm1 02/07 18:58 Order name: Basic Metabolic Panel; Complete Time: 19:50 EDMS 02/07 18:58 Order name: CBC with Automated Diff; Complete Time: 19:48 EDMS 02/07 19:25 Order name: COVID-19 : Document "Date of Symptom Onset" if Symptomatic. pm1 02/07 20:39 Order name: SARS-COV-2 RT PCR; Complete Time: 22:06 EDMS 02/08 03:22 Order name: Troponin I EDMS 02/08 04:56 Order name: CBC with Automated Diff EDMS 02/07 18:58 Order name: XRAY Chest (1 view); Complete Time: 19:59 pm1 02/07 18:58 Order name: EKG; Complete Time: 18:59 pm1 02/07 18:58 Order name: Cardiac monitoring; Complete Time: 19:01 pm1 02/07 18:58 Order name: EKG - Nurse/Tech; Complete Time: 19:01 pm1 02/07 18:58 Order name: IV Saline Lock; Complete Time: 19:01 pm1 02/07 18:58 Order name: Labs collected and sent; Complete Time: 18:59 pm1 02/07 18:58 Order name: O2 Per Protocol; Complete Time: 19:16 pm1 02/08 05:24 Order name: Comprehensive Metabolic Panel EDMS 02/08 05:24 Order name: Troponin I EDMS 02/08 05:24 Order name: Lipid Profile EDMS 02/08 05:24 Order name: T4 Free EDMS 02/08 05:24 Order name: Thyroid Stimulating Hormone EDMS 02/07 18:58 Order name: O2 Sat Monitoring; Complete Time: 19:16 pm1 Administered Medications: 19:24 Drug: morphine 4 mg Route: IVP; Site: right antecubital; rv 19:24 Drug: Zofran (Ondansetron) 4 mg Route: IVP; Site: right antecubital; rv 20:24 Drug: Eliquis (apixaban) 2.5 mg Route: PO; rv 20:25 Drug: Coreg (carvedilol) 6.25 mg Route: PO; rv Disposition: 02/09 10:35 Co-signature as Attending Physician, Ham Ledbetter MD I agree with the assessment and jude plan of care. Disposition: 02/07/21 20:06 Hospitalization ordered by Tony Knott for Observation. Preliminary diagnosis is Chest pain, unspecified. - Bed requested for [facility] ER HOLD. - Status is Observation. ca1 - Condition is Stable. - Problem is new. - Symptoms have improved. Signatures: Dispatcher [employer] EDMS Pearl Du Ham Ledbetter MD MD cha Attema, Juan Manuel, OPTICAL GLASS ETCHER-C OPTICAL GLASS ETCHER-Cla1 Jose Alberto Coombs, GROUND SUPPORT EQUIPMENT MECHANIC GROUND SUPPORT EQUIPMENT MECHANIC pm1 Joe Gutierrez RN RN Adiel Khoury mw2 Billy Turner RN RN rv AcobJacquie RN RN ca1 Corrections: (The following items were deleted from the chart) 02/07 19:48 19:26 CORONAVIRUS ordered. EDIA EDMS 21:35 20:06 Hospitalization Ordered by Tony Knott MD for Observation. Preliminary mw2 diagnosis is Chest pain, unspecified. Bed requested for Telemetry/MedSurg (observation). Status is Observation. Condition is Stable. Problem is new. Symptoms have improved. pm1 02/08 10:46 10:45 Labs - recollect needed ordered. bd bd 16:13 02/07 21:35 02/07/2021 20:06 Hospitalization Ordered by Tony Knott MD for ca1 Observation. Preliminary diagnosis is Chest pain, unspecified. Bed requested for [facility] ER HOLD. Status is Observation. Condition is Stable. Problem is new. Symptoms have improved. mw2
--- NOTE | 2021-02-07 20:06 | ER ---
Nurse's Notes [facility] Name: Xavier Comer Age: 85 yrs Sex: Male : 1935 Arrival Date: 02/07/2021 Time: 18:35 Bed 24 Private MD: Diagnosis: Chest pain, unspecified Presentation: 02/07 18:35 Chief complaint: Patient states: "Chest pain since 1700 this afternoon. more of an achy jd3 feeling.". Coronavirus screen: At this time, the client does not indicate any symptoms associated with coronavirus-19. Ebola Screen: Patient negative for fever greater than or equal to 101.5 degrees Fahrenheit, and additional compatible Ebola Virus Disease symptoms. Initial Sepsis Screen: Does the patient meet any 2 criteria? No. Patient's initial sepsis screen is negative. Does the patient have a suspected source of infection? No. Patient's initial sepsis screen is negative. Risk Assessment: Do you want to hurt yourself or someone else? Patient reports no desire to harm self or others. Onset of symptoms was February 07, 2021. 18:35 Method Of Arrival: Ambulatory jd3 18:35 Acuity: LINDSEY 3 jd3 Historical: - Allergies: 18:36 No Known Allergies; jd3 - PMHx: 18:36 Hypertension; pleurisy; walking pneumonia; jd3 - PSHx: 18:36 Hernia repair; Cholecystectomy; Prostate; Appendectomy; jd3 - Immunization history:: Adult Immunizations up to date. - Social history:: Smoking status: Patient denies any tobacco usage or history of. Screenin:55 Abuse screen: Denies threats or abuse. Denies injuries from another. Nutritional jl7 screening: No deficits noted. Tuberculosis screening: No symptoms or risk factors identified. Fall Risk IV access (20 points). Total Ward Fall Scale indicates No Risk (0-24 pts). Assessment: 20:00 General: Appears in no apparent distress. comfortable, Behavior is calm, cooperative, rr5 appropriate for age, hospitalist at bedside. Pain: Complains of pain in chest Pain does not radiate. Pain currently is 5 out of 10 on a pain scale. Quality of pain is described as aching, Pain began gradually, Is intermittent. Neuro: Level of Consciousness is awake, alert, obeys commands, Oriented to person, place, time. Cardiovascular: Reports chest pain, Capillary refill < 3 seconds Patient's skin is warm and dry. Respiratory: Airway is patent Respiratory effort is even, unlabored, Respiratory pattern is regular, symmetrical. GI: No signs and/or symptoms were reported involving the gastrointestinal system. : No signs and/or symptoms were reported regarding the genitourinary system. EENT: No signs and/or symptoms were reported regarding the EENT system. Derm: Skin is intact, is healthy with good turgor, Skin temperature is warm. Musculoskeletal: Capillary refill < 3 seconds. Vital Signs: 18:37 BP 170 / 79; Pulse 98; Resp 18 S; Temp 98.0(TE); Pulse Ox 94% on R/A; Weight 82.55 kg jd3 (R); Height 6 ft. 2 in. (187.96 cm) (R); Pain 7/10; 19:38 BP 173 / 86; Pulse 78; Resp 15; Pulse Ox 93% ; rr5 18:37 Body Mass Index 23.37 (82.55 kg, 187.96 cm) [facility] ED Course: 18:35 Patient arrived in ED. as 18:36 Triage completed. jd3 18:37 Arm band placed on. jd3 18:52 Jose Alberto Coombs NP is PHCP. pm1 18:52 Ham Ledbetter MD is Attending Physician. pm1 18:55 Initial lab(s) drawn, by me, sent to lab. Inserted saline lock: 20 gauge in right jl7 antecubital area, using aseptic technique. Blood collected. Patient maintains SpO2 saturation greater than 95% on room air. 18:59 Basic Metabolic Panel Sent. mh5 18:59 CBC with Automated Diff Sent. mh5 19:00 Basic Metabolic Panel Sent. mh5 19:00 CBC with Diff Sent. 5 19:00 LFT's Sent. mh5 19:01 Patient has correct armband on for positive identification. Placed in gown. Bed in low mh5 position. Call light in reach. Side rails up X 1. Warm blanket given. metal stamper on. Pulse ox on. NIBP on. 19:02 Initial lab(s) drawn, by ED staff, sent to lab. EKG done. 5 19:12 XRAY Chest (1 view) In Process Unspecified. EDMS 19:16 Billy Turner RN is Primary Nurse. rv 20:05 Tony Knott MD is Hospitalizing Provider. pm1 Administered Medications: 19:24 Drug: morphine 4 mg Route: IVP; Site: right antecubital; rv 19:24 Drug: Zofran (Ondansetron) 4 mg Route: IVP; Site: right antecubital; rv 20:24 Drug: Eliquis (apixaban) 2.5 mg Route: PO; rv 20:25 Drug: Coreg (carvedilol) 6.25 mg Route: PO; rv Outcome: 20:06 Decision to Hospitalize by Provider. pm1 02/08 16:13 Patient left the ED. ca1 Signatures: Dispatcher [employer] EDMS Heather Trivedi Patrick, BETTY PAINTING TRADES WORKER pm1 Nesha Trivedi 5 Hina Moore RN RN jl7 Joe Gutierrez RN RN jd3 Billy Turner, ARLENE RN rv Tony Garza, RN RN rr5 Jacquie Muse RN RN ca1
[2021-02-07] MEDS ORDERED: carvediloL 6.25 MG TAB ONE ×2 (20:38→23:24)
[2021-02-07] MEDS ORDERED: APIXABAN 5 MG TABLET ONE ×2 (20:38→23:24)
--- NOTE | 2021-02-07 21:28 | P.HP ---
Certification for Inpatient Patient admitted to: Observation With expected LOS: <2 Midnights Patient will require the following post-hospital care: None Practitioner: I am a practitioner with admitting privileges, knowledge of patient current condition, hospital course, and medical plan of care. Services: Services provided to patient in accordance with Admission requirements found in Title 42 Section 412.3 of the Code of Federal Regulations <Juan Manuel Degroot - Last Filed: 02/07/21 21:24> Patient History Date of Service: 02/07/21 Reason for admission: Chest pain History of Present Illness: 85-year-old male with history of pulmonary embolism/DVT, hypertension, GERD, CKD presents emergency department for chest pain. Patient reports that he had an episode of chest pain while he was cooking dinner earlier this evening, pain is described as aching, substernal radiating to left arm with associated shortness of breath. Patient denies similar symptoms in the past. Patient was admitted for pulmonary embolism approximately 1 year prior and has been on Eliquis 2.5 mg consistently since then. Patient reports that he has been compliant with his Eliquis. Patient evaluated in the emergency department, EKG without acute changes, chest x-ray unremarkable, labs significant for creatinine 1.82 GFR 36 which is patient's baseline initial troponin negative. ED provider wishes to admit patient for chest pain rule out. - Past Medical/Surgical History Diabetic: No -: diverticulosis -: Paroxysmal AFib -: kidney problems -: HTN -: DVT/PE -: carmita -: abd hernia repair -: prostate removed 15yrs ago Psychosocial/ Personal History: Patient is retired, lives alone - Family History Mother -: Heart disease, Cancer Notes: cervical Brother -: Cancer Notes: from poss prostate cx Sister -: Cancer Notes: breast cx Father -: Heart disease - Social History Alcohol use: No CD- Drugs: No Caffeine use: No Place of Residence: Home <Juan Manuel Degroot - Last Filed: 02/07/21 21:24> Date of Service: 02/14/21 <Tony Knott - Last Filed: 02/14/21 21:39> Allergies No Known Drug Allergies Allergy (Verified 07/08/20 20:26) Unknown Home Medications: Diltiazem HCl [Cartia Xt] 240 mg PO DAILY 07/08/20 Omeprazole [Prilosec] 40 mg PO DAILY 07/08/20 Apixaban [Eliquis] 1 tab PO SEECOM 30 Days #72 tablet 07/10/20 carvediloL [Coreg*] 1 tab PO BID 30 Days #30 tab 07/10/20 Review of Systems 10-point ROS is otherwise unremarkable Respiratory: Shortness of Breath Cardiovascular: Chest Pain, As per HPI <Juan Manuel Degroot - Last Filed: 02/07/21 21:24> Physical Examination - Physical Exam General: Alert, In no apparent distress HEENT: Atraumatic, PERRLA, Mucous membr. moist/pink Neck: Supple, 2+ carotid pulse no bruit, No LAD Respiratory: Clear to auscultation bilaterally, Normal air movement Cardiovascular: Regular rate/rhythm, Normal S1 S2 Gastrointestinal: Normal bowel sounds, No tenderness Musculoskeletal: No tenderness Integumentary: No rashes Neurological: Normal speech, Normal strength at 5/5 x4 extr, Normal tone, Normal affect - Studies Laboratory Data (last 24 hrs) 02/07/21 18:56: PT 13.6 H, INR 1.18 02/07/21 18:56: WBC 6.40, Hgb 14.1, Hct 42.5, Plt Count 206 02/07/21 18:56: Sodium 143, Potassium 4.2, BUN 20 H, Creatinine 1.82 H, Glucose 108 H, Magnesium 2.2, Total Bilirubin 0.5, AST 12 L, ALT 22, Alkaline Phosphatase 70 <Juan Manuel Degroot - Last Filed: 02/07/21 21:24> Assessment and Plan - Plan Assessment Chest pain rule out ACS Paroxysmal atrial fibrillation, PE/DVT history on chronic anticoagulation therapy CKD 3 Hypertension GERD Plan Chest pain rule out ACS: Monitor on telemetry, trend troponin levels, cardiolo gy consult in place. Patient reports last heart catheterization was approximately 5-6 years prior and did not require stenting at that time. Continue patient's Eliquis, Coreg. DVT prophylaxis with patient's Eliquis Paroxysmal atrial fibrillation, PE/DVT history on chronic anticoagulation therapy: Continue Eliquis 2.5 mg p.o. b.i.d.. Monitor on telemetry. Continue Coreg. CKD 3: Stable, continue gentle hydration. Consult nephrology as necessary. Hypertension: Continue Coreg GERD: Continue Protonix. Discharge Plan: Home Plan to discharge in: 24 Hours - Advance Directives Does patient have a Living Will: Yes Does patient have a Durable POA for Healthcare: Yes - Code Status/Comfort Care Code Status Assessed: Yes (DNR) Critical Care: No Time Spent Managing Pts Care (In Minutes): 55 <Juan Manuel Degroot - Last Filed: 02/07/21 21:24> - Plan Plan of care reviewed as noted above by Juan Manuel Degroot. Chest pain, r/o ACS, continue Eliquis <Tony Knott - Last Filed: 02/14/21 21:39>
[2021-02-07] MEDS: APIXABAN 2.5 MG TABLET PO SCH (22:24)
[2021-02-07] MEDS: NA CHLORIDE 0.9% 1,000 ML IV SCH (22:24)
[2021-02-07] MEDS: carvediloL 6.25 MG TAB PO SCH (22:24)
[2021-02-07] MEDS ORDERED: ONDANSETRON 4 MG/2 ML VIAL IV PRN (22:24)
[2021-02-07] MEDS ORDERED: NA CHLORIDE 0.9% 1,000 ML ONE (23:24)
[2021-02-07] MEDS ORDERED: MORPHINE 2 MG/ML SYR IV PRN (23:45)
[2021-02-08] MEDS ORDERED: ONDANSETRON 4 MG/2 ML VIAL ONE (00:09)
[2021-02-08] MEDS ORDERED: MORPHINE 2 MG/ML SYR ONE (00:09)
[2021-02-08 02:53] VITALS: BMI 23.1
[2021-02-08 04:53] LABS: Absolute Lymphocytes (CBC) 2.8 K/uL (0.7-4.9); Basophils % 0.6 % (0-1.3); Hematocrit 37.8 % (39.6-49.0); Lymphocytes % 45.2 % (15.3-44.8); MPV 7.7 fL (7.6-11.3)
[2021-02-08 05:23] LABS: ALT/SGPT 19 U/L (12-78); AST/SGOT 14 U/L (15-37); Albumin 3.2 g/dL (3.4-5.0); Alkaline Phosphatase 59 U/L (45-117); BUN Blood Urea Nitrogen 19 mg/dL (7-18); Bicarbonate 24 mmol/L (21-32); Bilirubin Total 0.5 mg/dL (0.2-1.0); Glucose Level 95 mg/dL (74-106); Potassium 4.1 mmol/L (3.5-5.1); Protein, Total 6.5 g/dL (6.4-8.2); Sodium Level 143 mmol/L (136-145); Troponin I < 0.02 ng/mL (0.0-0.045)
[2021-02-08 05:24] LABS: HDL Cholesterol 39 mg/dL (40-60); LDL Cholesterol, Calculated 120 (<130)
[2021-02-08] MEDS ORDERED: PANTOPRAZOLE 40MG TABLET PO SCH (06:30)
[2021-02-08] MEDS ORDERED: PANTOPRAZOLE 40MG TABLET PO ONE (06:55)
--- NOTE | 2021-02-08 07:53 | EKG ---
Test Date: 2021-02-07 Test Time: 18:42:19 Force Adjustment Supervisor: YONNY MEASUREMENT RESULTS: Intervals: Rate: 83 HI: 200 QRSD: 124 QT: 396 QTc: 465 [place]: P: 71 HI: 200 QRS: 97 T: 34 INTERPRETIVE STATEMENTS: Normal sinus rhythm Right bundle branch block Abnormal ECG Compared to ECG 07/08/2020 15:05:57 Sinus tachycardia no longer present Electronically Signed On 02-08-21 07:51:56 CDT by Goyo Cormier
[2021-02-08] MEDS ORDERED: carvediloL 6.25 MG TAB ONE (08:49)
[2021-02-08] MEDS ORDERED: APIXABAN 5 MG TABLET ONE (08:49)
[2021-02-08] MEDS ORDERED: DILTIAZEM HCL 120 MG SR CAP PO SCH (09:00)
[2021-02-08] MEDS: carvediloL 6.25 MG TAB PO SCH (09:55)
[2021-02-08] MEDS: APIXABAN 2.5 MG TABLET PO SCH (09:56)
[2021-02-08] MEDS: NA CHLORIDE 0.9% 1,000 ML IV SCH (11:44)
[2021-02-08 13:03] VITALS: BP 143/73; TEMP 98.3; O2SAT 97
--- NOTE | 2021-02-09 09:18 | ECHO ---
HEIGHT: 6 ft 2 in WEIGHT: 180 lb 0 oz DATE OF STUDY: 02/08/[address]: Goyo Cormier MD 2-DIMENSIONAL: YES M.MODE: YES DOPPLER: YES COLOR FLOW: YES TDS: YES PORTABLE: DEFINITY: BUBBLE STUDY: DIAGNOSIS: CHEST PAIN CARDIAC HISTORY: CATHERIZATION: NO SURGERY: NO PROSTHETIC VALVE: NO PACEMAKER: NO MEASUREMENTS (cm) DIASTOLIC (NORMALS) SYSTOLIC (NORMALS) IVSd 1.0 (0.6-1.2) LA Diam 3.0 (1.9-4.0) LVEF 53% LVIDd 4.8 (3.5-5.7) LVIDs 3.5 (2.0-3.5) %FS 28% LVPWd 1.2 (0.6-1.2) Ao Diam 3.1 (2.0-3.7) 2 DIMENSIONAL ASSESSMENT: RIGHT ATRIUM: NORMAL LEFT ATRIUM: NORMAL RIGHT VENTRICLE: NORMAL LEFT VENTRICLE: NORMAL TRICUSPID VALVE: NORMAL MITRAL VALVE: NORMAL PULMONIC VALVE: NORMAL AORTIC VALVE: NORMAL PERICARDIAL EFFUSION: NONE AORTIC ROOT: NORMAL LEFT VENTRICULAR WALL MOTION: NORMAL DOPPLER/COLOR FLOW: NORMAL COMMENTS: NORMAL LEFT VENTRICULAR EJECTION FRACTION 55-60%. MILD DIASTOLIC DYSFUNCTION. TECHNOLOGIST: CHIQUIS GOLDMAN
--- NOTE | 2021-02-09 14:22 | CON ---
Date of Consultation: 02/08/2021 Admitted on 02/07/[address] Knott's service. Reason For Consultation: Chest pain. History Of Present Illness: Mr. Comer is an 85-year-old white male. He is a do not resuscitate. He has a history of pulmonary emboli, DVT, hypertension, gastroesophageal reflux disease. Came in with an EKG that shows a right bundle-branch block. Creatinine 1.62, negative troponin, negative BNP, ne gative chest x-ray, negative D-dimer. He describes chest pain that is in the right upper shoulder, r adiating to the back and some left upper shoulder pain as well that is worse with movement and had be en going on for 2 to 3 days. No nausea, vomiting, diaphoresis, PND, orthopnea, pedal edema, palpitat ions, or syncope. Past Medical History: As stated above. Allergies: NONE. Review of Systems: Negative. Social History: Negative. Family History: Negative. Medications: At home include Cardura, Eliquis, Coreg, and Prilosec. Physical Examination: General: Very pleasant, no acute distress. Vital signs: Stable, afebrile. Sinus rhythm. HEENT: Negative. Neck: Supple. No bruit, lymphadenopathy, or JVD. Chest: Clear to auscultation and percussion. Cardiac: Revealed a regular rhythm and rate. No murmurs, gallops, or rubs. Abdomen: Benign. Extremities: Reveal no clubbing, cyanosis, or edema. Diagnostic Data: As stated earlier. Impression And Plan: 1.Atypical chest pain. 2.History of pulmonary embolism and deep venous thrombosis, on Eliquis. 3.Hypertension, on Cardura and Coreg. 4.Gastroesophageal reflux disease, on Prilosec. I think, Mr. Comer's symptoms are noncardiac in nature, probably musculoskeletal, have been going on for too long and yet he has a normal EKG except for right bundle-branch block. No acute changes. Ne gative troponin. I think, an echocardiogram is reasonable to do to rule out cardiomyopathy or perica rdial effusion or pericarditis, but I think he can go home. I will see him in the office in 2 weeks. No changes in medical therapy otherwise. BRUNILDA/ELZA Voice ID: [id number] Report ID: [id number]
--- NOTE | 2021-02-14 22:40 | P.DS ---
Admission Date: 02/07/21 Discharge Date: 02/08/21 Disposition: ROUTINE DISCHARGE Discharge Condition: GOOD Reason for Admission: Chest pain Consultations: Cardiology - Dr. Cormier Procedures: CXR (02/07): No acute abnormalities displayed TTE (02/08): completed, but final read pending at time of discharge. Problem List: Chest pain, costochondritis Paroxysmal atrial fibrillation, PE/DVT history on chronic anticoagulation therapy CKD 3 Hypertension GERD Brief History of Present Illness: 85-year-old male with history of pulmonary embolism/DVT, hypertension, GERD, CKD presents emergency department for chest pain. Patient reports that he had an episode of chest pain while he was cooking dinner earlier this evening, p ain is described as aching, substernal radiating to left arm with associated shortness of breath. Patient denies similar symptoms in the past. Patient was admitted for pulmonary embolism approximately 1 year prior and has been on Eliquis 2.5 mg consistently since then. Patient reports that he has been compliant with his Eliquis. Patient evaluated in the emergency department, EKG without acute changes, chest x-ray unremarkable, labs significant for creatinine 1.82 GFR 36 which is patient's baseline initial troponin negative. ED provider wishes to admit patient for chest pain rule out. Hospital Course: Troponins were trended and remained negative. Patient's chest pain is likely due to costochondritis. He had some tenderness with palpation of his sternum. Vital Signs/Physical Exam: Physical Exam General: Alert, In no apparent distress HEENT: Atraumatic, PERRLA, Mucous membr. moist/pink Respiratory: Clear to auscultation bilaterally, Normal air movement Cardiovascular: Regular rate/rhythm, Normal S1 S2 Gastrointestinal: Soft, Normal bowel sounds, No tenderness Musculoskeletal: mild tenderness to palpation of sternum Integumentary: No rashes Neurological: Normal speech, Normal strength at 5/5 x4 extr, Normal affect Temp Pulse Resp BP Pulse Ox 98.3 F 79 16 143/73 H 97 02/08/21 12:00 02/08/21 12:00 02/08/21 12:00 02/08/21 12:00 02/08/21 12:00 Laboratory Data at Discharge: WBC 6.10 K/uL (4.3-10.9) 02/08/21 04:35 Hgb 12.8 g/dL (13.6-17.9) L 02/08/21 04:35 Hct 37.8 % (39.6-49.0) L 02/08/21 04:35 Plt Count 175 K/uL (152-406) 02/08/21 04:35 PT 13.6 SECONDS (9.5-12.5) H 02/07/21 18:56 INR 1.18 02/07/21 18:56 Sodium 143 mmol/L (136-145) 02/08/21 04:35 Potassium 4.1 mmol/L (3.5-5.1) 02/08/21 04:35 BUN 19 mg/dL (7-18) H 02/08/21 04:35 Creatinine 1.62 mg/dL (0.55-1.3) H 02/08/21 04:35 Glucose 95 mg/dL (74-106) 02/08/21 04:35 Magnesium 2.2 mg/dL (1.8-2.4) 02/07/21 18:56 Total Bilirubin 0.5 mg/dL (0.2-1.0) 02/08/21 04:35 AST 14 U/L (15-37) L 02/08/21 04:35 ALT 19 U/L (12-78) 02/08/21 04:35 Alkaline Phosphatase 59 U/L (45-117) 02/08/21 04:35 Troponin I < 0.02 ng/mL (0.0-0.045) 02/08/21 04:35 Triglycerides 77 mg/dL (<150) 02/08/21 04:35 Cholesterol 174 mg/dL (<200) 02/08/21 04:35 HDL Cholesterol 39 mg/dL (40-60) L 02/08/21 04:35 Cholesterol/HDL Ratio 4.46 02/08/21 04:35 Home Medications: Diltiazem HCl [Cartia Xt] 240 mg PO DAILY 07/08/20 Omeprazole [Prilosec] 40 mg PO DAILY 07/08/20 Apixaban [Eliquis] 1 tab PO SEECOM 30 Days #72 tablet 07/10/20 carvediloL [Coreg*] 1 tab PO BID 30 Days #30 tab 07/10/20 Physician Discharge Instructions: PROBLEM: Chest pain GOAL: Clear understanding of disease process INSTRUCTIONS: Your chest pain was evaluated and unlikely to be due to your heart. You did not have signs /findings of a hear attack. Your chest pain is likely caused by some costochondritis and will take some time to resolve on its own. Follow up with PCP in 3-5 days. Follow up with your Dial Screw Assembler in 2-3 weeks. Diet: Heart Healthy Activity: As tolerated IMMUNIZATION Influenza Vaccine Indicated: Influenza Vaccine Given: Date Given: Pneumonia Vaccine Indicated: No Pneumonia Vaccine Given: Date Given: Diet: AHA Activity: Ad omar Followup: Tanner Aaron MD [Primary Care Provider] - Time spent managing pt's care (in minutes): 35
== END 2021-02-08 16:00 | disposition home or self-care (01) ==
LOC: ER 18:31 → ERHOLD 20:24
PROVIDERS: ADMIT Hospitalist; ATTEND Hospitalist
DX: R07.9 Chest pain, unspecified (principal); Z66 Do not resuscitate; Z86.711 Personal history of pulmonary embolism; Z86.718 Personal history of other venous thrombosis and embolism; K21.9 Gastro-esophageal reflux disease without esophagitis; I45.10 Unspecified right bundle-branch block; Z20.822 Contact with and (suspected) exposure to COVID-19; R94.31 Abnormal electrocardiogram [ECG] [EKG]; I48.0 Paroxysmal atrial fibrillation; I12.9 Hypertensive chronic kidney disease with stage 1 through stage 4 chronic kidney disease, or unspecified chronic kidney disease; N18.30 Chronic kidney disease, stage 3 unspecified; Z79.01 Long term (current) use of anticoagulants
CPT/HCPCS: 93005; 93306; 85025 ×2; 80048; 36415; 83735; 85610; 80061; 80076; 84443; 84484 ×3; 84439; 80053; 83880; 71045; 96375; 96374; 99285; U0003; J2270; J7030; J2405 ×2; G0378 ×3

== ENCOUNTER 2021-03-03 16:08 | Emergency (ER) | payer OTHER ==
[2021-03-03 17:26] LABS: Absolute Lymphocytes (CBC) 2.8 K/uL (0.7-4.9); Basophils % 0.7 % (0-1.3); Hematocrit 40.9 % (39.6-49.0); Lymphocytes % 33.5 % (15.3-44.8); MPV 8.1 fL (7.6-11.3); RBC Red Blood Cell Count 4.51 M/uL (4.33-5.43)
--- NOTE | 2021-03-03 17:34 | ER ---
Nurse's Notes [facility] Name: Xavier Comer Age: 85 yrs Sex: Male : 1935 Arrival Date: 03/03/2021 Time: 16:10 Bed 25 Private MD: Diagnosis: Atrioventricular block, complete Presentation: 03/03 16:22 Chief complaint: Patient states: shortness of breath on exertion with dizziness that em started 3 days ago, denies cough or fever, denies chest pain. Coronavirus screen: Client denies travel out of the [place] in the last 14 days. Ebola Screen: Patient negative for fever greater than or equal to 101.5 degrees Fahrenheit, and additional compatible Ebola Virus Disease symptoms Patient denies exposure to infectious person. Patient denies travel to an Ebola-affected area in the 21 days before illness onset. No symptoms or risks identified at this time. Initial Sepsis Screen: Does the patient meet any 2 criteria? No. Patient's initial sepsis screen is negative. Does the patient have a suspected source of infection? No. Patient's initial sepsis screen is negative. Risk Assessment: Do you want to hurt yourself or someone else? Patient reports no desire to harm self or others. Onset of symptoms was March 03, 2021. 16:22 Method Of Arrival: Wheelchair em 16:22 Acuity: LINDSEY 2 em Triage Assessment: 17:27 General: Appears in no apparent distress. Respiratory: Reports shortness of breath on zb exertion Onset: The symptoms/episode began/occurred 3 days ago , the patient has moderate shortness of breath. Historical: - Allergies: 16:26 No Known Allergies; em - Home Meds: 16:26 Cartia XT 240 mg Oral cp24 1 cap once daily [Active]; carvedilol 6.25 mg oral tab 1 tab em 2 times per day [Active]; Eliquis 5 mg oral tab 1 tab 2 times per day [Active]; omeprazole 40 mg Oral cpDR 1 cap once daily [Active]; - PMHx: 16:26 Hypertension; pleurisy; walking pneumonia; DVT; PE; em - PSHx: 16:26 Hernia repair; Cholecystectomy; Prostate; Appendectomy; em - Immunization history:: Adult Immunizations up to date. - Social history:: Smoking status: Patient denies any tobacco usage or history of. Screenin:26 Abuse screen: Denies threats or abuse. Denies injuries from another. Nutritional zb screening: No deficits noted. Tuberculosis screening: No symptoms or risk factors identified. Fall Risk None identified. Assessment: 17:25 Reassessment: notified ecp of patient heart rate 28. advise to monitor patient if zb patient starts to feel worst or syncope episode notify ecp STAT. 17:26 General: Appears in no apparent distress. comfortable, Behavior is calm, cooperative, zb appropriate for age, Reports fatigue for 2-3 days. Pain: Denies pain. Neuro: Level of Consciousness is awake, alert, obeys commands. Cardiovascular: Reports shortness of breath, syncope, Denies chest pain, diaphoresis, lightheadedness, nausea, vomiting, Heart tones S1 S2 present Capillary refill < 3 seconds Patient's skin is warm and dry. Pulses are all present. Rhythm is sinus bradycardia with 3rd degree heart block. Respiratory: Airway is patent Respiratory effort is even, unlabored, Respiratory pattern is regular, symmetrical. GI: No signs and/or symptoms were reported involving the gastrointestinal system. Derm: Skin is intact, is healthy with good turgor, Skin is dry, Skin is pale. Musculoskeletal: Circulation, motion, and sensation intact. Range of motion: intact in all extremities. 17:28 Reassessment: ECP at beside discussing care with patient . zb 17:30 Respiratory: Breath sounds are clear. zb 18:26 Reassessment: Patient appears in no apparent distress at this time. Patient and/or zb family updated on plan of care and expected duration. Pain level reassessed. Patient is alert, oriented x 3, equal unlabored respirations, skin warm/dry/pink. pt remains alert denies any current shortness of breath, chest pain or weakness. rastafari members at bedside at this time praying with patient. Vital Signs: 16:22 BP 131 / 49; Pulse 32; Resp 18; Temp 96.7(O); Pulse Ox 99% on R/A; Weight 85.28 kg; em Height 6 ft. 2 in. (187.96 cm); Pain 0/10; 17:30 BP 141 / 50; Pulse 61; Resp 16; Pulse Ox 99% on R/A; zb 18:26 BP 128 / 49; Pulse 31; Resp 16; Pulse Ox 98% ; zb 19:29 BP 145 / 67; Pulse 32; Resp 18; Pulse Ox 98% ; ak2 16:22 Body Mass Index 24.14 (85.28 kg, 187.96 cm) ED Course: 16:10 Patient arrived in ED. ds1 16:24 Triage completed. em 16:26 Arm band placed on. em 16:43 Jhoan Etienne PA is PHCP. jr8 16:43 Ham Ledbetter MD is Attending Physician. jr8 17:06 Suzy Bañuelos, RN is Primary Nurse. zb 17:27 Patient has correct armband on for positive identification. Placed in gown. Bed in low zb position. Call light in reach. Side rails up X2. Adult w/ patient. monitor technician on. Pulse ox on. NIBP on. Door closed. Noise minimized. 17:28 Inserted saline lock: 20 gauge in left antecubital area, using aseptic technique. Blood zb collected. 17:53 XRAY Chest (1 view) In Process Unspecified. EDMS 18:25 Patient transferred, IV remains in place. zb 18:25 No provider procedures requiring assistance completed. zb Administered Medications: No medications were administered Outcome: 17:33 ER care complete, transfer ordered by . [facility] 18:24 Transferred by ground EMS to [facility], Transfer form completed. zb 18:24 Transferred Note: report given to ARLENE Crooks at [facility] 18:24 Condition: stable 18:24 Instructed on the need for transfer, Demonstrated understanding of instructions, follow-up care. 19:33 Patient left the ED. ak2 Signatures: Dispatcher [employer] EDMS Lux Lei, RN RN [facility] ds1 Jhoan Etienne PA PA jr8 Suzy Bañuelos RN RN zb [place], Anthony ak2
--- NOTE | 2021-03-03 17:34 | EDPHYS ---
Physician Documentation [facility] Name: Xavier Comer Age: 85 yrs Sex: Male : 1935 Arrival Date: 03/03/2021 Time: 16:10 Bed 25 Private MD: ED Physician Ham Ledbetter HPI: 03/03 17:28 This 85 yrs old Male presents to ER via Wheelchair with complaints of jr8 Shortness Of Breath, Dizziness. 17:28 Onset: The symptoms/episode began/occurred gradually, 3 day(s) ago. Duration: The jr8 symptoms are continuous. The patient's shortness of breath is aggravated by light activity. Associated signs and symptoms: Pertinent negatives: chest pain, nausea, vomiting. Severity of symptoms: At their worst the symptoms were moderate in the emergency department the symptoms are unchanged. The patient has not experienced similar symptoms in the past. The patient has not recently seen a physician. Historical: - Allergies: 16:26 No Known Allergies; em - Home Meds: 16:26 Cartia XT 240 mg Oral cp24 1 cap once daily [Active]; carvedilol 6.25 mg oral tab 1 tab em 2 times per day [Active]; Eliquis 5 mg oral tab 1 tab 2 times per day [Active]; omeprazole 40 mg Oral cpDR 1 cap once daily [Active]; - PMHx: 16:26 Hypertension; pleurisy; walking pneumonia; DVT; PE; em - PSHx: 16:26 Hernia repair; Cholecystectomy; Prostate; Appendectomy; em - Immunization history:: Adult Immunizations up to date. - Social history:: Smoking status: Patient denies any tobacco usage or history of. ROS: 17:28 Eyes: Negative for injury, pain, redness, and discharge, ENT: Negative for injury, jr8 pain, and discharge, Neck: Negative for injury, pain, and swelling, Cardiovascular: Negative for chest pain, palpitations, and edema, Abdomen/GI: Negative for abdominal pain, nausea, vomiting, diarrhea, and constipation, Back: Negative for injury and pain, MS/Extremity: Negative for injury and deformity, Skin: Negative for injury, rash, and discoloration. 17:28 Respiratory: Positive for dyspnea on exertion, shortness of breath. 17:28 Neuro: Positive for dizziness. Exam: 17:28 Constitutional: This is a well developed, well nourished patient who is awake, alert, jr8 and in no acute distress. 17:28 Respiratory: Lungs have equal breath sounds bilaterally, clear to auscultation and percussion. No rales, rhonchi or wheezes noted. No increased work of breathing, no retractions or nasal flaring. Abdomen/GI: Soft, non-tender, with normal bowel sounds. No distension or tympany. No guarding or rebound. No evidence of tenderness throughout. Back: No spinal tenderness. No costovertebral tenderness. Full range of motion. Skin: Warm, dry with normal turgor. Normal color with no rashes, no lesions, and no evidence of cellulitis. MS/ Extremity: Pulses equal, no cyanosis. Neurovascular intact. Full, normal range of motion. Neuro: Awake and alert, GCS 15, oriented to person, place, time, and situation. Cranial nerves II-XII grossly intact. Motor strength 5/5 in all extremities. Sensory grossly intact. Cerebellar exam normal. Normal gait. 17:28 Cardiovascular: Rate: bradycardic, Rhythm: irregular, Pulses: Pulses are 2+ in right radial artery and left radial artery. Heart sounds: normal, normal S1and S2, no S3 or S4, Edema: is not appreciated, JVD: is not appreciated. 17:28 ECG was reviewed by the Attending Physician. Vital Signs: 16:22 BP 131 / 49; Pulse 32; Resp 18; Temp 96.7(O); Pulse Ox 99% on R/A; Weight 85.28 kg; em Height 6 ft. 2 in. (187.96 cm); Pain 0/10; 17:30 BP 141 / 50; Pulse 61; Resp 16; Pulse Ox 99% on R/A; zb 18:26 BP 128 / 49; Pulse 31; Resp 16; Pulse Ox 98% ; zb 19:29 BP 145 / 67; Pulse 32; Resp 18; Pulse Ox 98% ; ak2 16:22 Body Mass Index 24.14 (85.28 kg, 187.96 cm) em MDM: 16:43 Patient medically screened. [facility] 17:32 Data reviewed: vital signs, nurses notes, lab test result(s), EKG, radiologic studies, [facility] plain films. Data interpreted: Pulse oximetry: on room air is 99 %. Interpretation: normal. Counseling: I had a detailed discussion with the patient and/or guardian regarding: the historical points, exam findings, and any diagnostic results supporting the discharge/admit diagnosis, lab results, radiology results, the need to transfer to another facility, for higher level of care. 03/03 16:43 Order name: Basic Metabolic Panel; Complete Time: 18:02 03/03 16:43 Order name: CBC with Diff; Complete Time: 17:34 03/03 16:43 Order name: LFT's; Complete Time: 18:02 03/03 16:43 Order name: Magnesium; Complete Time: 18:02 03/03 16:43 Order name: NT PRO-BNP; Complete Time: 18:02 03/03 16:43 Order name: PT-INR; Complete Time: 17:45 03/03 16:43 Order name: Troponin (emerg Dept Use Only); Complete Time: 18:02 03/03 16:43 Order name: XRAY Chest (1 view); Complete Time: 18:20 03/03 16:43 Order name: EKG; Complete Time: 16:44 03/03 16:43 Order name: Cardiac monitoring; Complete Time: 17:25 03/03 16:43 Order name: EKG - Nurse/Tech; Complete Time: 17:25 03/03 16:43 Order name: IV Saline Lock; Complete Time: 17:25 03/03 16:43 Order name: Labs collected and sent; Complete Time: 17:25 03/03 16:43 Order name: O2 Per Protocol; Complete Time: 17:25 03/03 16:43 Order name: O2 Sat Monitoring; Complete Time: 17:25 EC:28 Rate is 31 beats/min. Rhythm is regular, 3rd degree heart block. Right axis deviation jr8 noted. QRS interval is prolonged at 134 msec. QT interval is normal. No Q waves. T waves are Inverted in leads III, aVF. No ST changes noted. Clinical impression: 3rd degree heart block. Interpreted by me. Reviewed by me. Administered Medications: No medications were administered Disposition: 03/04 09:28 Co-signature as Attending Physician, Ham Ledbetter MD I agree with the assessment and jude plan of care. Disposition: 03/03/21 17:[address] [facility]. Diagnosis is Atrioventricular block, complete. - Reason for transfer: Higher level of care. - Accepting physician is Dr. Langley. - Condition is Stable. - Problem is new. - Symptoms are unchanged. Signatures: Dispatcher [employer] EDHam Guerra MD MD cha Munoz, Edgar, RN RN Jhoan Downey PA PA jr8 ShandrahardyDonnell ak2 Corrections: (The following items were deleted from the chart) 03/03 17:46 17:33 03/03/2021 17:[address] [facility]. jr8 Diagnosis is Atrioventricular block, complete. Reason for transfer: Higher level of care. Accepting physician is [facility]. Condition is Stable. Problem is new. Symptoms are unchanged. jr8 19:33 17:46 03/03/2021 17:[address] [facility]. ak2 Diagnosis is Atrioventricular block, complete. Reason for transfer: Higher level of care. Accepting physician is Dr. Langley. Condition is Stable. Problem is new. Symptoms are unchanged. jr8
[2021-03-03 17:43] LABS: Protime INR 1.23
[2021-03-03 17:54] LABS: Albumin 3.5 g/dL (3.4-5.0); Bilirubin Direct 0.2 mg/dL (0-0.2); Bilirubin Total 0.8 mg/dL (0.2-1.0); Magnesium 2.3 mg/dL (1.8-2.4); Potassium 4.4 mmol/L (3.5-5.1); Troponin (Emerg Dept Use Only) 0.02 ng/mL (0.0-0.045)
--- NOTE | 2021-03-03 18:16 | RAD REPORT ---
EXAM DESCRIPTION: Luzmaria Single View03/03/2021 5:53 pm CLINICAL HISTORY: Shortness of breath COMPARISON: January 2021 FINDINGS: Mild bilateral interstitial lung opacities may represent mild interstitial pulmonary funmi a or pneumonitis/atypical pneumonia. Heart is borderline enlarged. Small granuloma right lung
[2021-03-03 20:19] VITALS: TEMP 96.7
[2021-03-03 20:22] VITALS: O2SAT 98
[2021-03-03 20:23] VITALS: BP 145/67
== END 2021-03-03 19:33 | disposition short-term general hospital (02) ==
LOC: ER 16:08
DX: I44.2 Atrioventricular block, complete (principal); I10 Essential (primary) hypertension; Z86.718 Personal history of other venous thrombosis and embolism; Z79.01 Long term (current) use of anticoagulants
CPT/HCPCS: 36415; 71045; 80048; 80076; 83735; 83880; 84484; 85025; 85610; 99285

== ENCOUNTER 2022-03-30 05:43 | Emergency (ER) | payer OTHER ==
[2022-03-30] MEDS ORDERED: ONDANSETRON 4 MG/2 ML VIAL ONE (06:39)
[2022-03-30] MEDS ORDERED: NA CHLORIDE 0.9% 500 ML ONE (06:39)
[2022-03-30] MEDS ORDERED: MORPHINE 4 MG/ML SYR ONE (06:39)
[2022-03-30 06:55] LABS: Absolute Lymphocytes (CBC) 1.7 K/uL (0.7-4.9); Hematocrit 40.2 % (39.6-49.0); Lymphocytes % 20.9 % (15.3-44.8); MPV 7.3 fL (7.6-11.3); RBC Red Blood Cell Count 4.47 M/uL (4.33-5.43)
[2022-03-30 06:58] LABS: Protime INR 1.28
[2022-03-30 07:01] LABS: Albumin 3.6 g/dL (3.4-5.0); Bilirubin Total 1.5 mg/dL (0.2-1.0); Potassium 3.8 mmol/L (3.5-5.1); Protein, Total 7.1 g/dL (6.4-8.2)
--- NOTE | 2022-03-30 08:09 | RAD REPORT ---
EXAM DESCRIPTION: CTAbdomen Pelvis W Contrast - 03/30/2022 7:52 am CLINICAL HISTORY: Abdominal pain. LLQ abdominal pain COMPARISON: No comparisons TECHNIQUE: Biphasic CT imaging of the abdomen and pelvis was performed with 100 ml non-ionic IV cont rast. All CT scans are performed using dose optimization technique as appropriate and may include automated exposure control or mA/KV adjustment according to patient size. FINDINGS: The lung bases are clear. Small hepatic cysts are present. No aggressive hepatic mass or biliary dilatation. Cholecystectomy cl ips. The spleen, pancreas, adrenal glands within normal limits. Small nonobstructing calculus right k idney. Benign renal cysts bilaterally. No hydronephrosis. No bowel obstruction, free air, free fluid or abscess. Appendectomy. A significant amount of inflamm ation is noted in the left lower quadrant surrounding the a segment of the sigmoid colon. This segmen t of the sigmoid colon measuring approximately 4 cm in length shows prominent wall thickening with se veral diverticula present. A few small tico-colonic lymph nodes are present. Mild lumbar degenerative changes. IMPRESSION: 4 cm length of the sigmoid colon in the left lower quadrant demonstrates significant wal l thickening, several diverticula and surrounding inflammation. Acute diverticulitis would be the fav ored diagnosis. However, inflammatory malignancy can have a similar appearance and therefore followup colonoscopy would be recommended.
[2022-03-30] MEDS ORDERED: HYDROCODONE/APAP 5/325 MG TAB ONE (08:20)
--- NOTE | 2022-03-30 08:23 | EDPHYS ---
Physician Documentation [facility] Name: Xavier Comer Age: 86 yrs Sex: Male : 1935 Arrival Date: 03/30/2022 Time: 05:45 Bed 19 Private MD: ED Physician Ty Frazier HPI: 03/30 06:21 This 86 yrs old Male presents to ER via Ambulatory with complaints of Groin Pain. mh7 06:21 The patient presents with abdominal pain in the left lower quadrant. Onset: The mh7 symptoms/episode began/occurred 2 day(s) ago. The symptoms do not radiate. Associated signs and symptoms: Pertinent negatives: nausea, vomiting, and diarrhea, anorexia, blood in stools, chest pain, constipation, diarrhea, dysuria, fever, headache, hematuria, nausea, palpitations, shortness of breath, testicular pain, vomiting, vomiting blood. The symptoms are described as intermittent, vague, waxing/waning. Modifying factors: The symptoms are alleviated by nothing, the symptoms are aggravated by movement, touching the area. Severity of pain: At its worst the pain was moderate yesterday, in the emergency department the pain is unchanged. Historical: - Allergies: 05:58 No Known Allergies; lg3 - Home Meds: 05:58 omeprazole 40 mg Oral cpDR 1 cap once daily [Active]; Eliquis 5 mg Oral tab 1 tab 2 lg3 times per day [Active]; carvedilol 6.25 mg Oral tab 1 tab 2 times per day [Active]; atorvastatin 40 mg oral tab 1 tab once daily [Active]; - PMHx: 05:58 DVT; Hypertension; PE; pleurisy; walking pneumonia; lg3 - PSHx: 05:58 pacemaker; Appendectomy; Cholecystectomy; prostate removal; lg3 - Immunization history:: Adult Immunizations up to date, Client reports receiving the 2nd dose of the Covid vaccine, pfizer X2. - Social history:: Smoking status: Patient denies any tobacco usage or history of. Patient/guardian denies using alcohol. ROS: 06:21 Constitutional: Negative for fever, chills, and weight loss, Eyes: Negative for injury, mh7 pain, redness, and discharge, ENT: Negative for injury, pain, and discharge, Neck: Negative for injury, pain, and swelling, Cardiovascular: Negative for chest pain, palpitations, and edema, Respiratory: Negative for shortness of breath, cough, wheezing, and pleuritic chest pain, Back: Negative for injury and pain, : Negative for injury, bleeding, discharge, and swelling, MS/Extremity: Negative for injury and deformity, Skin: Negative for injury, rash, and discoloration, Neuro: Negative for headache, weakness, numbness, tingling, and seizure, Psych: Negative for depression, anxiety, suicide ideation, homicidal ideation, and hallucinations, Allergy/Immunology: Negative for hives, rash, and allergies, Endocrine: Negative for neck swelling, polydipsia, polyuria, polyphagia, and marked weight changes, Hematologic/Lymphatic: Negative for swollen nodes, abnormal bleeding, and unusual bruising. Exam: 06:21 Head/Face: Normocephalic, atraumatic. Eyes: Pupils equal round and reactive to light, mh7 extra-ocular motions intact. Lids and lashes normal. Conjunctiva and sclera are non-icteric and not injected. Cornea within normal limits. Periorbital areas with no swelling, redness, or edema. Neck: Trachea midline, no thyromegaly or masses palpated, and no cervical lymphadenopathy. Supple, full range of motion without nuchal rigidity, or vertebral point tenderness. No Meningismus. Chest/axilla: Normal chest wall appearance and motion. Nontender with no deformity. No lesions are appreciated. Cardiovascular: Regular rate and rhythm with a normal S1 and S2. No gallops, murmurs, or rubs. Normal PMI, no JVD. No pulse deficits. Respiratory: Lungs have equal breath sounds bilaterally, clear to auscultation and percussion. No rales, rhonchi or wheezes noted. No increased work of breathing, no retractions or nasal flaring. Back: No spinal tenderness. No costovertebral tenderness. Full range of motion. Skin: Warm, dry with normal turgor. Normal color with no rashes, no lesions, and no evidence of cellulitis. MS/ Extremity: Pulses equal, no cyanosis. Neurovascular intact. Full, normal range of motion. Neuro: Awake and alert, GCS 15, oriented to person, place, time, and situation. Cranial nerves II-XII grossly intact. Motor strength 5/5 in all extremities. Sensory grossly intact. Cerebellar exam normal. Normal gait. Psych: Awake, alert, with orientation to person, place and time. Behavior, mood, and affect are within normal limits. 06:21 Constitutional: The patient appears in no acute distress, alert, awake, uncomfortable. 06:21 Abdomen/GI: Inspection: abdomen appears normal, Bowel sounds: normal, in all quadrants, Palpation: moderate abdominal tenderness, in the suprapubic area and left lower quadrant, mass, is not appreciated, rebound tenderness, is not appreciated, voluntary guarding, is not appreciated, involuntary guarding, is not appreciated, no appreciated organomegaly, Indicators: McBurney's point is not tender, Sal's sign is negative, Rovsing's sign is negative, Obturator sign is negative, Psoas sign is negative, Liver: no appreciated palpable abnormalities, Hernia: not appreciated. Vital Signs: 05:58 BP 163 / 73; Pulse 84; Resp 17; Temp 99.2(O); Pulse Ox 97% on R/A; Weight 83.91 kg (R); lg3 Height 6 ft. 2 in. (187.96 cm) (R); Pain 7/10; 06:41 BP 166 / 80; Pulse 80; Resp 17; Pulse Ox 96% on R/A; lg3 08:00 BP 167 / 75; Pulse 76; Resp 18; Pulse Ox 99% ; Pain 8/10; jh6 05:58 Body Mass Index 23.75 (83.91 kg, 187.96 cm) lg3 MDM: 08:11 Patient medically screened. ms3 08:25 Differential diagnosis: diverticulitis, Irritable bowel syndrome, non-specific abd ms3 pain. Data reviewed: vital signs, nurses notes, lab test result(s), radiologic studies, and as a result, I will discharge patient. Counseling: I had a detailed discussion with the patient and/or guardian regarding: the historical points, exam findings, and any diagnostic results supporting the discharge/admit diagnosis, lab results, radiology results, the need for outpatient follow up, to return to the emergency department if symptoms worsen or persist or if there are any questions or concerns that arise at home. ED course: Discussed labs, CT, physical exam findings with patient. Patient to follow-up with primary care physician in 2 to 3 days. Patient understands and agrees with plan. All questions were answered. Return precautions discussed include worsening symptoms, or any other concerns. On reevaluation patient is alert and oriented x4, in no apparent distress, nontoxic-appearing, speaking full sentences, ambulatory in emergency department.. 03/30 06:19 Order name: CBC with Diff; Complete Time: 07:07 [facility] 03/30 06:19 Order name: CMP; Complete Time: 07:07 [facility] 03/30 06:19 Order name: Lipase; Complete Time: 07:07 [facility] 03/30 06:19 Order name: Protime (+inr); Complete Time: 07:07 [facility] 03/30 06:19 Order name: Ptt, Activated; Complete Time: 07:07 [facility] 03/30 07:08 Order name: CT Abd/Pelvis - IV Contrast Only ms3 03/30 06:19 Order name: IV Saline Lock; Complete Time: 06:31 [facility] 03/30 06:19 Order name: Labs collected and sent; Complete Time: 06:31 [facility] 03/30 07:12 Order name: Abdomen ; Complete Time: 08:12 EDMS 03/30 06:19 Order name: Urine Dipstick-Ancillary (obtain specimen) [facility] Administered Medications: 06:38 Drug: NS 0.9% 500 ml Volume: 500 ml; Route: IV; Rate: 1 bolus; Site: right antecubital; lg3 06:39 Drug: Zofran (Ondansetron) 4 mg Route: IVP; Site: right antecubital; lg3 06:39 Follow up: Response: No adverse reaction lg3 06:39 Drug: morphine 4 mg Route: IVP; Infused Over: 4 mins; Site: right antecubital; lg3 06:39 Follow up: Response: No adverse reaction lg3 08:15 Drug: HYDROcodone-acetaminophen 5 mg-325 mg 1 tabs Route: PO; jh6 08:25 Follow up: Response: No adverse reaction jh6 08:31 Follow up: Response: No adverse reaction jh6 08:21 Drug: Augmentin (Amoxicillin-Clavulanate) 875 mg Route: PO; jh6 08:31 Follow up: Response: No adverse reaction 6 Disposition Summary: 03/30/22 08:22 Discharge Ordered Location: Home ms3 Condition: Stable ms3 Diagnosis - Diverticulitis of intestine, part unspecified, without perforation or abscess ms3 without bleeding - Abdominal pain, Generalized ms3 Followup: ms3 - With: Hunter Carpenter MD - When: 2 - 3 days - Reason: Recheck today's complaints Discharge Instructions: - Discharge Summary Sheet ms3 - Abdominal Pain, Adult ms3 - Diverticulitis ms3 Forms: - Medication Reconciliation Form ms3 - Thank You Letter ms3 - Antibiotic Education ms3 - Prescription Opioid Use ms3 Prescriptions: - Augmentin 875-125 mg Oral Tablet - take 1 tablet by ORAL route every 12 hours for 10 days; 20 tablet; Refills: 0, ms3 Product Selection Permitted Signatures: Dispatcher [employer] Kristine Bryan, RN RN lg3 Ty Frazier DO DO ms3 Kane Whitt MD MD mh7 Lisa Wilburn RN RN jh6
--- NOTE | 2022-03-30 08:23 | ER ---
Nurse's Notes [facility] Name: Xavier Comer Age: 86 yrs Sex: Male : 1935 Arrival Date: 03/30/2022 Time: 05:45 Bed 19 Private MD: Diagnosis: Diverticulitis of intestine, part unspecified, without perforation or abscess without bleeding;Abdominal pain, Generalized Presentation: 03/30 05:57 Chief complaint: Patient states: medial groin pain radiating to the left side for 2 lg3 days. pain increases with position. Coronavirus screen: Client denies travel out of the [place] in the last 14 days. At this time, the client does not indicate any symptoms associated with coronavirus-19. Ebola Screen: No symptoms or risks identified at this time. Initial Sepsis Screen: Does the patient meet any 2 criteria? No. Patient's initial sepsis screen is negative. Does the patient have a suspected source of infection? No. Patient's initial sepsis screen is negative. Risk Assessment: Do you want to hurt yourself or someone else? Patient reports no desire to harm self or others. Onset of symptoms was March 27, 2022. 05:57 Method Of Arrival: Ambulatory lg3 05:57 Acuity: LINDSEY 3 lg3 Triage Assessment: 05:58 General: Appears in no apparent distress. uncomfortable, Behavior is calm, cooperative. lg3 Pain: Complains of pain in suprapubic area Pain radiates to left lower quadrant Pain currently is 7 out of 10 on a pain scale. Pain began 2-3 days ago. Aggravated by repositioning. EENT: No deficits noted. No signs and/or symptoms were reported regarding the EENT system. Neuro: No deficits noted. Hunt Agitation-Sedation Scale (RASS): 0 - Alert and Calm Level of Consciousness is awake, alert, obeys commands, Oriented to person, place, time, situation. Cardiovascular: No deficits noted. Denies chest pain, shortness of breath, Capillary refill < 3 seconds Clubbing of nail beds is absent JVD is absent Patient's skin is warm and dry. Respiratory: No deficits noted. Airway is patent Trachea midline Respiratory effort is even, unlabored, Respiratory pattern is regular, symmetrical, Denies shortness of breath. GI: Abdomen is round non-distended, Reports lower abdominal pain, cramping. : No deficits noted. No signs and/or symptoms were reported regarding the genitourinary system. Derm: No deficits noted. No signs and/or symptoms reported regarding the dermatologic system. Skin is intact, is healthy with good turgor, Skin is dry, Skin temperature is warm. Musculoskeletal: No deficits noted. No signs and/or symptoms reported regarding the musculoskeletal system. Circulation, motion, and sensation intact. Range of motion: intact in all extremities. Historical: - Allergies: 05:58 No Known Allergies; lg3 - Home Meds: 05:58 omeprazole 40 mg Oral cpDR 1 cap once daily [Active]; Eliquis 5 mg Oral tab 1 tab 2 lg3 times per day [Active]; carvedilol 6.25 mg Oral tab 1 tab 2 times per day [Active]; atorvastatin 40 mg oral tab 1 tab once daily [Active]; - PMHx: 05:58 DVT; Hypertension; PE; pleurisy; walking pneumonia; lg3 - PSHx: 05:58 pacemaker; Appendectomy; Cholecystectomy; prostate removal; lg3 - Immunization history:: Adult Immunizations up to date, Client reports receiving the 2nd dose of the Covid vaccine, pfizer X2. - Social history:: Smoking status: Patient denies any tobacco usage or history of. Patient/guardian denies using alcohol. Screenin:06 Abuse screen: Denies threats or abuse. Denies injuries from another. Nutritional lg3 screening: No deficits noted. Tuberculosis screening: No symptoms or risk factors identified. Fall Risk None identified. Assessment: 06:06 General: see triage assessment . lg3 07:00 General: Appears in no apparent distress. Behavior is calm, cooperative, Smells of. jh6 Pain: Complains of pain in left upper quadrant and left lower quadrant Pain currently is 8 out of 10 on a pain scale. Quality of pain is described as sharp, stabbing, Pain began 2-3 days ago. Is continuous, Aggravated by eating, drinking, increased activity. 07:00 GI: Abdomen is flat, non-distended, Bowel sounds present X 4 quads. Abdomen is tender jh6 to palpation X 4 quads. in left upper quadrant and left lower quadrant. 08:17 Reassessment: No changes from previously documented assessment. made aware that pt jh6 is having pain and ct results back. Vital Signs: 05:58 BP 163 / 73; Pulse 84; Resp 17; Temp 99.2(O); Pulse Ox 97% on R/A; Weight 83.91 kg (R); lg3 Height 6 ft. 2 in. (187.96 cm) (R); Pain 7/10; 06:41 BP 166 / 80; Pulse 80; Resp 17; Pulse Ox 96% on R/A; lg3 08:00 BP 167 / 75; Pulse 76; Resp 18; Pulse Ox 99% ; Pain 8/10; jh6 05:58 Body Mass Index 23.75 (83.91 kg, 187.96 cm) lg3 ED Course: 05:45 Patient arrived in ED. ja2 05:51 Kristine Mayo, RN is Primary Nurse. lg3 05:58 Triage completed. lg3 05:58 Arm band placed on left wrist. lg3 06:04 Kane Whitt MD is Attending Physician. 7 06:06 Patient has correct armband on for positive identification. Bed in low position. Call 3 light in reach. Side rails up X 1. Client placed on continuous cardiac and pulse oximetry monitoring. NIBP monitoring applied. Door closed. Noise minimized. Warm blanket given. 06:31 Protime (+inr) Sent. lg3 06:31 Ptt, Activated Sent. lg3 06:31 CBC with Diff Sent. lg3 06:31 CMP Sent. lg3 06:31 Lipase Sent. lg3 06:33 Inserted saline lock: 20 gauge in right antecubital area, using aseptic technique. lg3 Blood collected. 07:06 Attending Physician role handed off by Kane Whitt MD ms3 07:06 Ty Frazier DO is Attending Physician. ms3 07:[address] via stretcher. jh6 07:53 Abdomen In Process Unspecified. EDMS 08:20 Hunter Carpenter MD is Referral Physician. ms3 08:30 IV discontinued, intact, bleeding controlled, No redness/swelling at site. jg9 08:30 No provider procedures requiring assistance completed. jh6 Administered Medications: 06:38 Drug: NS 0.9% 500 ml Volume: 500 ml; Route: IV; Rate: 1 bolus; Site: right antecubital; lg3 06:39 Drug: Zofran (Ondansetron) 4 mg Route: IVP; Site: right antecubital; lg3 06:39 Follow up: Response: No adverse reaction lg3 06:39 Drug: morphine 4 mg Route: IVP; Infused Over: 4 mins; Site: right antecubital; lg3 06:39 Follow up: Response: No adverse reaction lg3 08:15 Drug: HYDROcodone-acetaminophen 5 mg-325 mg 1 tabs Route: PO; jh6 08:25 Follow up: Response: No adverse reaction jh6 08:31 Follow up: Response: No adverse reaction jh6 08:21 Drug: Augmentin (Amoxicillin-Clavulanate) 875 mg Route: PO; jh6 08:31 Follow up: Response: No adverse reaction 6 Medication: 06:07 VIS not applicable for this client. lg3 Outcome: 08:22 Discharge ordered by . ms3 08:30 Discharged to home ambulatory. jh6 08:30 Condition: good 08:30 Discharge instructions given to patient, family, Instructed on discharge instructions, Demonstrated understanding of instructions, follow-up care, medications, Prescriptions given X 1. 08:32 Patient left the ED. 6 Signatures: Dispatcher [employer] EDMS Kristine Mayo RN RN lg3 Ty Frazier DO DO ms3 Kane Whitt MD MD mh7 Tanja Greenwood Jennifer, RN RN jh6 Lisa Cherry RN RN jg9
[2022-03-30] MEDS ORDERED: AMOX TR/K CLAV 400MG CHEW TAB PO ONE (08:27)
[2022-03-30 08:38] VITALS: TEMP 99.2
[2022-03-30 08:47] VITALS: BP 167/75; O2SAT 99
== END 2022-03-30 08:32 | disposition home or self-care (01) ==
LOC: ER 05:43
DX: K57.32 Diverticulitis of large intestine without perforation or abscess without bleeding (principal); I10 Essential (primary) hypertension; Z86.718 Personal history of other venous thrombosis and embolism; Z86.711 Personal history of pulmonary embolism; Z95.0 Presence of cardiac pacemaker
CPT/HCPCS: 85025; 36415; 85610; 85730; 83690; 80053; 74177; 96375; 96374; 99284; Q9967; J7040; J2405

== ENCOUNTER 2024-11-10 09:20 | Emergency (ER) | payer OTHER ==
[2024-11-10] MEDS ORDERED: KETOROLAC 30 MG/ML INJ ONE (10:08)
[2024-11-10] MEDS ORDERED: dexAMETHasone 10 MG/ML VIAL ONE (10:08)
[2024-11-10] MEDS ORDERED: CYCLOBENZAPRINE 10 MG TAB ONE (10:08)
--- NOTE | 2024-11-10 13:14 | RAD REPORT ---
EXAMINATION: XR LEFT SHOULDER CLINICAL INDICATION: Male, 88 years old. SWELLING TECHNIQUE: Internal and external AP view radiograph of the left shoulder were obtained. COMPARISON: No prior exam. FINDINGS: No evidence of fracture or dislocation. Normal alignment. Mild to moderate left AC and shelbi ohumeral joint degenerative changes. Left chest wall pacer in place. Soft tissues are unremarkable. IMPRESSION: No acute osseous abnormalities. Degenerative changes as above.
--- NOTE | 2024-11-10 13:23 | ER ---
Nurse's Notes [facility] Name: Xavier Comer Age: 88 yrs Sex: Male : 1935 Arrival Date: 11/10/2024 Time: 09:20 Bed 5 Private MD: Diagnosis: Muscle spasm of back Presentation: 11/10 09:54 Chief complaint: Patient states: he threw something approx three days ago and "felt a ap3 pop" in his left shoulder. patient states he has been having increased pain since then. patient currently rates his pain as a 10/10 on the pain scale. Coronavirus screen: At this time, the client does not indicate any symptoms associated with coronavirus-19. Ebola Screen: No symptoms or risks identified at this time. Initial Sepsis Screen: Does the patient meet any 2 criteria? No. Patient's initial sepsis screen is negative. Does the patient have a suspected source of infection? No. Patient's initial sepsis screen is negative. Risk Assessment: Do you want to hurt yourself or someone else? Patient reports no desire to harm self or others. Onset of symptoms was November 07, 2024. 09:54 Method Of Arrival: Ambulatory ap3 09:54 Acuity: LINDSEY 3 ap3 Triage Assessment: 09:56 General: Appears uncomfortable, Behavior is calm, cooperative, appropriate for age. ap3 Pain: Complains of pain in left arm Pain currently is 10 out of 10 on a pain scale. Pain began gradually. Neuro: Level of Consciousness is awake, alert, obeys commands, Oriented to person, place, time, situation, Speech is normal. Cardiovascular: Patient's skin is warm and dry. Respiratory: Airway is patent Respiratory effort is even, unlabored, Respiratory pattern is regular, symmetrical. Historical: - Allergies: 09:55 No Known Allergies; ap3 - PMHx: :55 DVT; Hypertension; PE; pleurisy; walking pneumonia; ap3 - PSHx: :55 Appendectomy; Cholecystectomy; pacemaker; prostate removal; ap3 - Immunization history:: Client reports receiving the 2nd dose of the Covid vaccine, Flu vaccine is up to date. - Infectious Disease History:: Denies. - Social history:: Smoking status: Patient denies any tobacco usage or history of. Screenin:57 Abuse screen: Denies threats or abuse. Nutritional screening: No deficits noted. ap3 Tuberculosis screening: No symptoms or risk factors identified. 10:13 [facility] ED Fall Risk Assessment (Adult) History of falling in the last 3 months, ld1 including since admission No falls in past 3 months (0 pts) Confusion or Disorientation No (0 pts) Intoxicated or Sedated No (0 pts) Impaired Gait No (0 pts) Mobility Assist Device Used No (0 pt) Altered Elimination No (0 pt) Score/Fall Risk Level 0 - 2 = Low Risk Oriented to surroundings, Maintained a safe environment, Educated pt \\T\\ family on fall prevention, incl call for assistance when getting out of bed, Assessed \\T\\ reinforced patient's understanding of fall precautions, Provided non-skid footwear, Hourly rounding (assess needs \\T\\ fall precautionary measures) done, Used ambulatory aids as needed (educated on \\T\\ assisted with), Used gait belt as appropriate. Assessment: 10:13 General: Appears in no apparent distress. comfortable, Behavior is calm, cooperative, ld1 appropriate for age. Pain: Complains of pain in anterior aspect of left shoulder and posterior aspect of left shoulder Pain does not radiate. Pain currently is 9 out of 10 on a pain scale. Quality of pain is described as throbbing, Pain began suddenly, Is continuous. Neuro: Level of Consciousness is awake, alert, obeys commands, Oriented to person, place, time, situation. Cardiovascular: Capillary refill < 3 seconds Patient's skin is warm and dry. Respiratory: Airway is patent Respiratory effort is even, unlabored. GI: Abdomen is flat, non-distended. : No signs and/or symptoms were reported regarding the genitourinary system. EENT: No signs and/or symptoms were reported regarding the EENT system. Derm: No signs and/or symptoms reported regarding the dermatologic system. Musculoskeletal: Range of motion: limited in left shoulder. Vital Signs: 09:46 BP 143 / 81; Pulse 72; Resp 18; Pulse Ox 95% on R/A; Weight 79.38 kg; Height 6 ft. 2 em1 in. ; Pain 10/10; 10:13 BP 129 / 65; Pulse 60; Resp 18; Pulse Ox 99% on R/A; Pain 9/10; ld1 11:41 BP 137 / 98; Pulse 61; Resp 18; Pulse Ox 96% on R/A; ld1 09:46 Body Mass Index 22.47 (79.38 kg, 187.96 cm) em1 09:46 Pain Scale: Adult em1 10:13 Pain Scale: Adult ld1 ED Course: 09:22 Patient arrived in ED. ra3 09:25 Ham Ledbetter MD is Attending Physician. jude 09:25 Cristi Canales FNP-C is [facility]. dr5 09:55 Triage completed. ap3 09:58 Arm band placed on right wrist. ap3 10:05 Teresa Frazier, RN is Primary Nurse. ld1 10:13 Patient has correct armband on for positive identification. Placed in gown. Bed in low ld1 position. Call light in reach. Side rails up X2. Pulse ox on. NIBP on. Door closed. Noise minimized. Warm blanket given. 10:13 No provider procedures requiring assistance completed. ld1 11:42 Shoulder Left (2 View) XRAY In Process Unspecified. EDMS Administered Medications: 10:13 Drug: Ketorolac IM 30 mg IM once Route: IM; Site: left deltoid; ld1 10:13 Drug: Dexamethasone IM 10 mg IM once Route: IM; Site: right deltoid; ld1 10:13 Drug: Cyclobenzaprine PO 10 mg PO once Route: PO; ld1 Medication: 10:13 VIS not applicable for this client. ld1 Outcome: 13:23 Discharge ordered by . dr5 13:50 Patient left the ED. ld1 Signatures: Dispatcher [employer] EDMS Ham Ledbetter MD MD cha Martinez, Eric em1 Cele Emery RN RN ap3 Teresa Frazier, ARLENE RN ld1 Ciara Cano ra3 Cristi Canales FNP-C FNP-[facility]5
--- NOTE | 2024-11-10 13:23 | EDPHYS ---
Physician Documentation [facility] Name: Xavier Comer Age: 88 yrs Sex: Male : 1935 Arrival Date: 11/10/2024 Time: 09:20 Bed 5 Private MD: ED Physician Ham Ledbetter HPI: 11/10 09:59 This 88 yrs old Male presents to ER via Ambulatory with complaints of Left dr5 shoulder pain. 09:59 Patient is a 88-year-old male with history of hypertension, stage III CKD, and previous dr5 complete heart block with pacemaker coming in with left shoulder pain after throwing something 3 days ago. Patient reports that he is weak and I Profen with mild relief. Patient denies chest pain, shortness of breath, abdominal pain, nausea, vomiting, diarrhea. Patient denies trauma or falls, urinary or bowel incontinence, bilateral lower leg numbness, or perirectal numbness. Historical: - Allergies: 09:55 No Known Allergies; ap3 - PMHx: 09:55 DVT; Hypertension; PE; pleurisy; walking pneumonia; ap3 - PSHx: 09:55 Appendectomy; Cholecystectomy; pacemaker; prostate removal; ap3 - Immunization history:: Client reports receiving the 2nd dose of the Covid vaccine, Flu vaccine is up to date. - Infectious Disease History:: Denies. - Social history:: Smoking status: Patient denies any tobacco usage or history of. ROS: 10:01 Constitutional: as per hpi dr5 Exam: 10:01 Constitutional: This is a well developed, well nourished patient who is awake, alert, dr5 and in no acute distress. Head/Face: Normocephalic, atraumatic. Eyes: Pupils equal round and reactive to light, extra-ocular motions intact. Lids and lashes normal. Conjunctiva and sclera are non-icteric and not injected. Cornea within normal limits. Periorbital areas with no swelling, redness, or edema. Neck: Trachea midline, no thyromegaly or masses palpated, and no cervical lymphadenopathy. Supple, full range of motion without nuchal rigidity, or vertebral point tenderness. No Meningismus. Chest/axilla: Normal chest wall appearance and motion. Nontender with no deformity. No lesions are appreciated. Cardiovascular: Regular rate and rhythm with a normal S1 and S2. Normal PMI, no JVD. No pulse deficits. Respiratory: Lungs have equal breath sounds bilaterally, clear to auscultation. No rales, rhonchi or wheezes noted. No increased work of breathing, no retractions or nasal flaring. Skin: Warm, dry with normal turgor. Normal color with no rashes, no lesions, and no evidence of cellulitis. Neuro: Awake and alert, GCS 15, oriented to person, place, time, and situation. Cranial nerves II-XII grossly intact. Motor strength 5/5 in all extremities. Sensory grossly intact. Cerebellar exam normal. Normal gait. 10:01 Musculoskeletal/extremity: Extremities: all appear grossly normal, with no appreciated pain with palpation, noted in the left scapular area: ROM: no acute changes, Circulation is intact in all extremities. Sensation intact. 10:01 Skin: Appearance: normal except for affected area, Vital Signs: 09:46 BP 143 / 81; Pulse 72; Resp 18; Pulse Ox 95% on R/A; Weight 79.38 kg; Height 6 ft. 2 em1 in. ; Pain 10/10; 10:13 BP 129 / 65; Pulse 60; Resp 18; Pulse Ox 99% on R/A; Pain 9/10; ld1 11:41 BP 137 / 98; Pulse 61; Resp 18; Pulse Ox 96% on R/A; ld1 09:46 Body Mass Index 22.47 (79.38 kg, 187.96 cm) em1 09:46 Pain Scale: Adult em1 10:13 Pain Scale: Adult ld1 MDM: 09:25 Medical Screening Exam initiated jude 12:51 Awaiting: X-ray results. dr5 16:25 Differential diagnosis: Fracture, contusion, sprain. Data reviewed: vital signs, nurses dr5 notes. I considered the following discharge prescriptions or medication management in the emergency department Medications were administered in the Emergency Department. See MAR. Care significantly affected by the following chronic conditions: Hypertension, PE, DVT. Care significantly affected by the following Social Determinants of Health: Poor access to healthcare and/or lack of insurance, Poor access to transportation, Problems related to employment. Counseling: I had a detailed discussion with the patient and/or guardian regarding the historical points, exam findings, and any diagnostic results supporting the discharge/admit diagnosis, the presence of at least one elevated blood pressure reading (>120/80) during this emergency department visit, radiology results, the need for outpatient follow up, for definitive care, a family practitioner, a orthopedic surgeon, to return to the emergency department if symptoms worsen or persist or if there are any questions or concerns that arise at home. Medication response: Cyclobenzaprine, dexamethasone, Toradol. Response to treatment: the patient's symptoms have markedly improved after treatment. ED course: Patient feels much better after medication. Will give patient steroid pack to start tomorrow. Patient was prescribed Robaxin to help with muscles with decreased fall risk. Patient is feeling much better and ambulatory with no pain. Will have patient follow-up with primary care doctor as needed.. 11/10 09:49 Order name: Shoulder Left (2 View) XRAY; Complete Time: 13:23 dr5 Administered Medications: 10:13 Drug: Ketorolac IM 30 mg IM once Route: IM; Site: left deltoid; ld1 10:13 Drug: Dexamethasone IM 10 mg IM once Route: IM; Site: right deltoid; ld1 10:13 Drug: Cyclobenzaprine PO 10 mg PO once Route: PO; ld1 Disposition Summary: 11/10/24 13:23 Discharge Ordered Notes: Location: Home dr5 Condition: Stable dr5 Diagnosis - Muscle spasm of back dr5 Followup: dr5 - With: Emergency Department - When: As needed - Reason: Worsening of condition Followup: dr5 - With: Private Physician - When: 1 - 2 days - Reason: Recheck today's complaints, Continuance of care, Re-evaluation by your physician Discharge Instructions: - Discharge Summary Sheet dr5 - Muscle Cramps and Spasms dr5 Forms: - Medication Reconciliation Form dr5 - Patient Portal Instructions dr5 - Leadership Thank You Letter dr5 Prescriptions: - Medrol (Abhijit) 4 mg Oral Tablets, Dose Pack - take 1 tablet ORAL route as directed - follow package instructions; 1 packet; dr5 Refills: 0, Product Selection Permitted - methocarbamol 750 mg Oral tablet - take 2 tablet ORAL route 1-2 times daily As needed; 30 tablet; Refills: 0, dr5 Product Selection Permitted Addendum: 11/13/2024 07:32 Co-signature as Attending Physician, Ham Ledbetter MD I agree with the assessment and c newby plan of care. Signatures: Dispatcher [employer] Ham Neely MD MD cha Prokisch, Amanda, RN RN ap3 Teresa Frazier RN RN ld1 Parker, Cristi, BRANCH SERVICES MANAGER-C BRANCH SERVICES MANAGER-Cdr5
[2024-11-10 14:14] VITALS: BP 137/98; O2SAT 96
== END 2024-11-10 13:50 | disposition home or self-care (01) ==
LOC: ER 09:20
DX: M62.830 Muscle spasm of back (principal); I10 Essential (primary) hypertension
CPT/HCPCS: 73030; 96372; 99284; J1100